=== PATIENT | male | born 1985 | race Caucasian/White ===

== ENCOUNTER 2017-05-10 10:13 | Emergency (ER) | payer MEDICARE, MEDICAID ==
[~2017-05-10] VITALS: Ht 175.3 cm; Wt 127.0 kg
[~2017-05-10 10:13] MED LIST: ALBUTEROL-200 PUFFS/ IH; AZITHROMYCIN250 M1 PO; BUPROPION HYDR150 M3 PO; CIPRO 500MG TA500 MG PO; COMPAZINE10 MG PO; DARVOCET-N 1001 EACH PO; DICLOFENAC SOD75 MG PO; FIORICET 325 MG1 TAB PO; FLEXERIL10 M1 PO; FLEXERIL10 MG PO; FLUCONAZOLE150 MG PO; IBU-8800 MG PO; IBU800 MG PO; IBUPROFEN800 MG PO; IMITREX100 MG PO; IMITREX25 MG PO; LORTAB 5/500 501 TAB PO; LORTAB 500 MG-71 TAB PO; MEDROL 4MG. DOSE4 MG PO; MOBIC7.5 MG PO; MONODOX100 MG PO; MONTELUKAST SOD10 MG PO; MOTRIN800 MG PO; NADOLOL 20 MG T20 MG PO; NADOLOL20 MG PO; NAPROSYN 375MG375 MG PO; NAPROSYN 500MG500 MG PO; NOMEDS *; NOMEDS XX; OMNICEF 300 MG300 MG PO; PEPCID40 MG PO; PHENERGAN 25MG.25 M1 PO; PREDNISONE 20MG20 MG PO; PRILOSEC20 M1 PO; PROMETH W/ DEX480 ML PO; STERAPRED DS10 MG PO; TAMIFLU 75MG CA75 MG PO; TESSALON PERLE100 M1 PO; TESSALON PERLE100 MG PO; TRAMADOL 50MG T50 MG PO; TYLENOL W/CODEI1 TA2 PO; ULTRAM 50 MG TA50 MG PO; VENTOLIN H0.09 MG/Ac IH; VIBRAMYCIN 100100 MG PO; VICODIN 5/500 T1 TAB PO; VOLTAREN75 MG PO; ZITHROMAX Z PA250 MG PO; ZYRTEC 10MG TAB10 MG PO; ZYRTEC10 M2 PO
--- NOTE | 2017-05-10 10:33 | Emergency Room Report ---
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 N Clinical Suspician of Infection? N Mental Status: 1 - Regular (Normal Baseline) Sepsis Risk:Low Sepsis Risk Have you (or family members/close friends) recently traveled outside the [place]? N If Yes, where/when: Have you had exposure to infectious disease within the past month? TB? Other? Specify: Patient reports was weed eating today when experienced acute onset of right sided pleuritic chest pain. 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 He has had one episode of vomiting, and feels short of breath. No diaphoresis or fever. He smokes two cigarettes a day, has dad with hx of [place], and denies personal hx of HTN/DM/ hyperlipidemia/CAD. No numbness or tingling. ALLERGIES Coded Allergies: Penicillins (10/07/16) Home Medications Active Scripts Prednisone (Prednisone 20MG) 20 MG PO BID #10 TAB Prov: 05/01/17 Reported Medications Ibuprofen (MOTRIN 800MG (generic) Tablet) 800 MG PO TID #90 Albuterol Sulfate (Ventolin Hfa) 0.09 MG IH PRN PRN SOB #18 History Medical History General CAD? No Angina: Yes [place]: No Hypertension? No Hyperlipidemia? No CHF? No DVT? No PE? No COPD? Yes Asthma? Yes Anemia? No GERD? No Gastric ulcers? No GI Bleed? No Hernia? No Thyroid Problems? No Hypothyroidism? No CVA? No Seizures? No Diabetes? No Insulin Dependent: No Insulin Pump: No Home FSBS? No Renal Insuffiency? No End Stage Renal Disease? No UTI? No Stones? No BPH? No GB Disease: No Nephritic Syndrome? No Asplenia? No Hepatitis? No Sickle Cell Disease? No Arthritis? No Migraines? No Cataracts? No Glaucoma? No MRSA? Yes HIV? No TB? No Anxiety? No Depression? No Cancer? No More? No Immunization Hx DT/Tetanus 1-4 YRS Flu NEVER Pneumonia NEVER Surgical Hx Previous Surgery?Y LT NECK LYMPH NODE REMOVE TONSILLECTOMY COLLAPSED LUNG X3-CHEST TUBES SURGERY TO REPR DIAPHRAGM WISDOM TEETH EXTRACTED ORAL SURGERY Family History Family Hx Diabetes Yes CAD Yes Hypertension Yes Hyperlipidemia Yes Cancer Yes TB No Social History Smoking Hx Smoker: Current Every Day Smoker Tobacco: Yes Type Cigarettes Packs/day < 1 Pack Alcohol Alcohol: No Review of Systems All Other Systems Reviewed and Negative Respiratory see HPI Physical Exam Vital Signs Vital Signs Date Time Temp Pulse Resp B/P Pulse O2 O2 Flow FiO2 Ox Delivery Rate 05/10 1059 84 18 129/80 97 05/10 1014 97.8 90 18 97 General Appearance normal appearance, WD/WN, no apparent distress, mild distress (129/87), obese Eye Exam - bilateral eye normal exam, bilateral eye PERRL, bilateral eye EOMI Neck normal inspection, non-tender, supple, full range of motion Respiratory Status Yes: trachea midline, chest symmetrical, non tender chest, pain on inspiration. No: respiratory distress, tender on palpation, use of accessory muscles, pain on expiration, productive cough, non productive cough. Lung Sounds bilateral: normal breath sounds, lungs clear (no subcutaneous air). Cardiovascular normal exam, regular rate/rhythm, no peripheral edema, no gallop, no JVD, no murmur, no rub, normal peripheral pulses Gastrointestinal normal bowel sounds, normal exam, non tender, soft, no organomegaly, no pulsatile mass, no guarding, no rebound Extremities non-tender, normal range of motion, normal inspection, normal capillary refill, no calf tenderness, no pedal edema Strength 5 Upper Ext (L), 5 Upper Ext (R), 5 Lower Ext (L), 5 Lower Ext (R) Neurologic alert, normal exam, no motor/sensory deficits, oriented x 3 Glascow Coma Scale Glascow Coma Scale Response Value EYE response: 4 Spontaneously 4 MOTOR response: 6 OBEYS 6 VERBAL response: 5 Oriented & Converses 5 Total 15 Skin intact, normal color, warm/dry Lymphatic no adenopathy Medical Decision Making LABS/Meds/Orders Pt receiving controlled substance in ED? No Results/Orders Laboratory Tests 05/10/17 1030: Sodium 142, Potassium 3.8, Chloride 108 H, Carbon Dioxide 26, BUN 18, Creatinine 1.2, Estimated Creat Clear 162, Estimated GFR (MDRD) 71, Glucose 95, Calcium 8.8, Total Bilirubin 0.2, AST 12 L, ALT 27, Alkaline Phosphatase 67, Troponin I < 0.02, Total Protein 6.8, Albumin 3.4, Globulin 3.4 H, Albumin/ Globulin Ratio 1.0 L, WBC 8.0, RBC 5.98, Hgb 16.6, Hct 50.3, MCV 84.2, RDW 14.2 , Plt Count 384, MPV 7.3 L, Gran % 68.8, Gran # 5.5, Lymphocytes % 22.4, Monocytes % 5.7, Eosinophils % 2.7, Basophils % 0.5, Lymphocytes # 1.8, Monocytes # 0.5, Eosinophils # 0.2, Basophils # 0.0, PUBS MCHC 33.4, MCH 28.1 Current Medication Orders Sig/Nadira Start time Last Medication Dose Route Stop Time Status Admin Iopamidol 60 ML ONCE ONE 05/10 1130 DC 05/10 IV 05/10 1131 1117 Sodium Chloride 10 ML PRN PRN 05/10 1130 AC 05/10 IV 05/10 1246 1117 Sodium Chloride 20 ML ONCE ONE 05/10 1130 DC 05/10 IV 05/10 1131 1117 Sodium Chloride 20 ML ONCE ONE 05/10 1130 DC 05/10 IV 05/10 1131 1117 Sodium Chloride 10 ML PRN PRN 05/10 1030 AC IV 05/11 1017 Orders Procedure Date/time Status DIET-NOTHING BY MOUTH 05/10 L Active ELECTROCARDIOGRAM REQUEST 05/10 1025 Active CHEST-PORTABLE 05/10 1025 Active IV SALINE LOCK 05/10 1025 Active TROPONIN I 05/10 1025 Complete CBC WITH AUTO DIFF 05/10 1025 Complete CHEM 12 PROFILE 05/[address] CHEST W/PE PROTOCOL REQ 05/10 1016 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 of ischemic chgs, no ectopy, normal QRS, normal MD, normal EKG (NSR 78;) XRAY/CT/US XRAY/CT/US XRAY chest XR interpretation by reviewed by me, discussed w/radiologist Xray Results normal/NAD (no PTX; chronic changes only), no infiltrates, normal heart size, normal lung inflation betsy CT chest CT interpretation by reviewed by me (report reviewed) Time results known: 1142 CT Results normal/NAD (neg PE; pos bleb, neg PTX) Pulmonary Embolism Score WELL'S CRITERIA FOR PE WELL'S CRITERIA FOR PE Response Value Clinical signs/symptoms of DVT YES 3 PE is #1 diagnosis or equally likely NO 0 Heart rate is > 100 NO 0 Immobile at least 3 days, or surgery in past 4 wks NO 0 Previously, obj. diagnosed PE or DVT NO 0 Hemoptysis NO 0 Malignancy w/Rx within 6mo, or palliative NO 0 Total 3 Patient's PE Risk 1-2pts=MOD RISK (28%) (acute onset; CT ordered) Progress ED Progress Notes Date 05/10/17 Time 1141 Comment Declines pain medication; stable, ready for DC Departure Departure Time of Disposition 1142 Disposition DC Home or Self Care(routine) Clinical Impression Primary Impression: Pleurisy Secondary Impressions: Bleb, lung Ruled Out Impressions: Pneumothorax, Pulmonary embolism Condition STABLE Referrals Jeovany Marmolejo MD (Family) Patient Instructions Pleurisy Additional Instructions Aleve as needed, see Dr. Marmolejo one to three days for follow up as well as your lung specialist, next available appointment. Discharge Counseling Counseled pt/family regarding diagnosis, test results, medications/RX, home care, follow up needs ED Critical Care Critical Care No at 1149
--- OUTSIDE RECORDS SUMMARY | 2017-05-10 10:34 | External Medical Summary Rpt ---
Author Author , Organization [employer] Address Unknown Phone Unavailable Care Team Providers Care Ict Business Development Manager Name Role Phone DELONTE MORAES JR, Unavailable Unavailable DELONTE MORAES JR BESJAMAL UMER, BESSON Unavailable Unavailable UMER BESSON UMER, BESSON Unavailable Unavailable UMER YAA, KAUSHAL A, Unavailable Unavailable BESSON KAUSHAL A BESS, BESS Unavailable Unavailable BESS ALL, BESS ALL Unavailable Unavailable BREEDING ANA, Unavailable Unavailable BREEDING ANA [facility] Unavailable Unavailable SERVICE, [facility] Unavailable Unavailable SERVICE, [facility] Erwin Tristan Unavailable Unavailable , Erwin Tristan MD [facility] ELAN ANA LAURA, Unavailable Unavailable ELAN ANA LAURA ELAN ANA LAURA, Unavailable Unavailable ELAN ANA LAURA ELAN, ROBE, Unavailable Unavailable ELAN, [facility] Unavailable [facility]available [facility] Unavailable [facility]available [facility] NISSA L.P., NISSA L.P. Unavailable Unavailable RAJ DEYVI, Unavailable Unavailable RAJ DEYVI RAJ DEYVI, Unavailable Unavailable RAJ DEYVI TERI WILLIAMSON Unavailable Unavailable TERI STEFANIA, TERI Unavailable Unavailable STEFANIA TERI STEFANIA, TERI Unavailable Unavailable STEFANIA SARAH WILLIAMSON, Unavailable Unavailable SARAH WILLIAMSON ROBERT W, Unavailable Unavailable [facility] Unavailable Unavailable INC, [facility] Unavailable Un[facility]PITAL P, [facility] CELIA WATKINS HARVEY, Unavailable Unavailable MARY SORIA Unavailable Unavailable HORMANN MAR, HORMANN Unavailable Unavailable MAR CHEW SHAYY, CHEW SHAYY Unavailable Unavailable FIDE MARTÍNEZ, FIDE Unavailable Unavailable MARTÍNEZ [facility] Un[facility] Un[facility], [facility], [facility] GABY JR DWI, GABY Unavailable Unavailable JR DWI GABY, ALEXIS E, Unavailable Unavailable GABY, ALEXIS E [facility] Un[facility] Un[facility], [facility] Unavailable Un[facility] Unavailable Unavailable [facility] Unavailable Unavailable [facility], Unavailable Unavailable [facility] Unavailable Unavailable SERVICES, [facility] PIPPA PALM, Unavailable Unavailable PIPPA PALM EMMETT P, Unavailable Unavailable JUAN A MATOS [facility], Unavailable [facility]available [facility], [facility] PUND CHR, PUND CHR Unavailable Unavailable PUND CHR, PUND CHR Unavailable Unavailable RENUSCH MARIA ALEJANDRA, RENUSCH Unavailable Unavailable MARIA ALEJANDRA SCALF ANA, SCALF ANA Unavailable Unavailable SOKAN BAB, SOKAN BAB Unavailable Unavailable JAY BENIGNO, JAY Unavailable Unavailable BENIGNO JAY BENIGNO, JAY Unavailable Unavailable BENIGNO WEHRMAN III MARVIN, Unavailable Unavailable WEHRMAN III MARVIN WEHRMAN III MARVIN, Unavailable Unavailable WEHRMAN III MARVIN GUNNER KAPLAN, GUNNER KAPLAN Unavailable Unavailable GUNNER KAPLAN, GUNNER KAPLAN Unavailable Unavailable TOD TOLEDO, Unavailable Unavailable TOD TOLEDO Purpose Continuity of Care Document - 11-12-2007 through 2016 Problems Code Diagnosis DOS Provider Status [id number] PAIN IN 03-04-2017 [facility] [id number] PAIN IN 03-04-2017 [facility] [id number] PAIN IN 03-04-2017 [facility] LEFT LOWER [facility]ICAL LEG [facility] [id number] SPRAIN 03-04-2017 [facility] UNSPECIFIED PHYSICIANS, SITE LT PLLC KNEE INITIAL ENCNTR Z720 TOBACCO USE 03-04-2017 [facility] [id number] OTHER 03-02-2017 [facility] VITREOUS OPACITIES BILATERAL H578 OTHER 03-02-2017 [facility] SPECIFIED DISORDERS OF EYE AND ADNEXA J209 ACUTE 10-07-2016 [facility] BRONCHITIS [facility] UNSPECIFIED INC J40 BRONCHITIS 10-07-2016 [facility] NOT PHYSICIANS, SPECIFIED PLLC ACUTE OR CHRONIC J440 COPD WITH 10-07-2016 [facility] ACUTE LOWER [facility] RESPIRATORY INFECTION R05 COUGH 10-07-2016 [facility] J189 PNEUMONIA 04-22-2016 [facility] UNSPECIFIED PHYSICIANS, ORGANISM PLLC J9383 OTHER 04-22-2016 [facility] PNEUMOTHORA [facility] X INC J939 PNEUMOTHORA 04-22-2016 [facility] X PHYSICIANS, UNSPECIFIED [facility] R0789 OTHER CHEST 04-22-2016 [facility] PAIN [facility] R918 OTHER 04-22-2016 [place] NONSPECIFIC MEDICAL ABNORMAL IMAGING ASS FINDING OF LUNG FIELD J430 UNILATERAL 04-21-2016 [facility] PULM [facility] EMPHYSEMA INC MACLEODS SYNDROME R079 CHEST PAIN 04-21-2016 [place] UNSPECIFIED [facility]ICAL IMAGING ASS R0989 OTH SPEC SX 04-21-2016 [place] & SIGNS MEDICAL INVLV THE IMAGING ASS CIRC & RESP SYS J069 ACUTE UPPER 01-22-2016 [facility] RESPIRATORY INTERNAL INFECTION MED UNSPECIFIED J449 CHRONIC 01-19-2016 [facility] OBSTRUCTIVE [facility] PULMONARY INC DISEASE UNS R091 PLEURISY 01-19-2016 [facility], [facility] R042 HEMOPTYSIS 01-13-2016 [facility], [facility] 462 ACUTE 07-31-2015 [place] PH[facility]NGITIS [facility] INTERNAL MEDI 4779 ALLERGIC 07-31-2015 [place] RHINITIS [place] CAUSE INTERNAL UNSPECIFIED MEDI 63180 SHORTNESS 07-31-2015 [place] OF BREATH [facility] P E8490 PLACE OF 07-31-2015 [facility] OCCURRENCE, [facility] P E9412 SYMPATHOMIM 07-31-2015 [place] ETS CAUS [facility] P EFFECT THERAPEUTIC USE V140 PERSONAL 07-31-2015 [place] HISTORY OF [facility] ALLERGY TO [facility] P PENICILLIN V8537 BODY MASS 07-31-2015 [place] INDEX VALLEY 37.0-37.9 INTERNAL ADULT MEDI 7241 PAIN IN 06-13-2015 [facility]IC [facility] SPINE [facility] 78126 GENERALIZED 05-23-2015 JAY BENIGNO ANXIETY DISORDER 33199 UNSPECIFIED 03-25-2015 [facility] CAR[facility] V154 PERS HX 11-08-2013 [facility] AL TRAUMA PRS [facility] 305.1 305.1 10-22-2013 [place] TOBACCO USE [facility] DISORDER [facility] 413.9 413.9 10-22-2013 [place] ANGINA [facility] PECTORIS [facility] NEC/NOS 493.90 493.90 10-22-2013 [place] ASTHMA, [facility] UNSPECIFIED Hospital 496 496 CHR 10-22-2013 [place] AIRWAY [facility] OBSTRUCT [facility] NEC 97348 PAIN IN 10-22-2013 ELAN JOINT, ANA LAURA FOREARM 842.00 842.00 10-22-2013 [place] SPRAIN OF [facility] 19900 SPRAIN AND 10-22-2013 PUND CHR STRAIN OF UNSPECIFIED SITE OF WRIST E8889 UNSPECIFIED 10-22-2013 ELAN FALL ANA LAURA 5283 CELLULITIS 06-02-2013 RAJ AND ABSCESS DEYVI OF ORAL SOFT TISSUES 6823 CELLULITIS 05-28-2013 [place] ROSAURA AND ABSCESS OF UPPER ARM AND FOREARM 86000 OTHER VOICE 01-12-2013 RAJ AND DEYVI RESONANCE DISORDERS 86146 POSTNASAL 01-12-2013 RAJ DRIP DEYVI 39567 OBESITY, 11-10-2012 RAJ UNSPECIFIED DEYVI 4720 CHRONIC 11-10-2012 RAJ RHINITIS DEYVI 98038 ASTHMA, 11-10-2012 RAJ UNSPECIFIED DEYVI , UNSPECIFIED STATUS 7862 COUGH 11-10-2012 RAJ DEYVI 490 BRONCHITIS 10-26-2012 RAJ NOT DEYVI SPECIFIED ACUTE OR CHRONIC 82027 UNSPECIFIED 10-26-2012 RAJ DEYVI RESPIRATORY ABNORMALITY 7906 OTHER 10-26-2012 RAJ ABNORMAL DEYVI BLOOD CHEMISTRY 8472 LUMBAR 09-11-2012 TERI STEFANIA SPRAIN AND STRAIN 23444 JAW PAIN 08-09-2012 BESSON UMER 4928 OTHER 07-12-2012 BESSON UMER EMPHYSEMA V7281 PRE-OPERATI 07-12-2012 BESSON UMER VE CARDIOVASCU LAR EXAMINATION 23905 PAIN IN 06-22-2012 [place] JOINT, MEDICAL ANKLE AND IMAGING ASS FOOT 7823 EDEMA 06-22-2012 [facility] 49430 UNSPECIFIED 06-22-2012 WEHRMAN III SITE OF MARVIN ANKLE SPRAIN AND STRAIN E8888 OTHER FALL 06-22-2012 WEHRMAN III MARVIN 16905 PAIN IN 06-14-2012 BESSON UMER JOINT, LOWER LEG 7840 HEADACHE 06-14-2012 BESSON UMER 93460 HEAD 12-30-2011 WEHRMAN III INJURY, MARVIN UNSPECIFIED 19399 SPASM OF 11-05-2011 [facility] MUSCLE [facility] 7295 PAIN IN 11-05-2011 [facility] SOFT [facility] TISSUES OF INC LIMB 25282 UNSPECIFIED 09-17-2011 [facility] RETINAL GRE DEFECT 96596 UNSPECIFIED 09-17-2011 [facility] SUBJECTIVE GRE VISUAL DISTURBANCE 45245 OTHER 09-17-2011 [facility] VISUAL GRE DISTORTIONS AND ENTOPTIC PHENOMENA 27279 OTHER 09-17-2011 [facility] VITREOUS GRE OPACITIES 0340 STREPTOCOCC 08-29-2011 [facility] AL SORE EMERGENCY THROAT SERVICES 41744 PAINFUL 08-29-2011 [facility] RESPIRATION EMERGENCY SERVICES 29957 OTHER CHEST 08-29-2011 [facility] PAIN [facility] 36615 CHEST PAIN 08-27-2011 [place] [facility] UNSPECIFIED SERV FOUNDATIO 2410 NONTOXIC 07-29-2011 [facility] UNINODULAR [facility] GOITER INC 7856 ENLARGEMENT 07-15-2011 [facility] OF LYMPH [facility] NODES INC 7842 SWELLING 07-07-2011 [facility] MASS OR EMERGENCY LUMP IN SERVICES HEAD AND NECK 93057 SPRAIN AND 03-21-2011 [facility] STRAIN OF MEM [facility]OS[facility] CHONDROSTER INC NAL 8488 OTHER 03-21-2011 [facility] SPECIFIED EMERGENCY SITES OF SERVICES SPRAINS AND STRAINS 92644 OTHER 03-21-2011 [facility] INJURY OF AMBULANCE CHEST WALL SERVICE 5282 ORAL 07-07-2010 [facility] APHTHAE EMERGENCY SERVICES 95513 CONTUSION 03-31-2010 [facility] OF BACK [facility] INC 66154 SPRAIN AND 01-09-2010 [facility] STRAIN OF EMERGENCY UNSPECIFIED SERVICES SITE OF ASSOCIATES HAND E8498 OTHER 01-09-[address] [place] [address] OF IMAGING OCCURRENCE ASSOCIATES E9179 OTHER 01-09-2010 [facility] STRIKING EMERGENCY AGAINST SERVICES W/WO ASSOCIATES SUBSEQUENT FALL 4660 ACUTE 01-03-2010 [place] BRONCHITIS [facility] PROF SERV 5110 PLEURISY 01-03-2010 [facility] MENTION HOSPITAL EFFUS/CURRE PROF SERV NT TB 5119 UNSPECIFIED 01-03-2010 [facility] PLEURAL EMERGENCY EFFUSION SERVICES ASSOCIATES 20281 MIGRAINE 09-13-2009 [facility] UNSP W/O EMERGENCY INTRACT W/O SERVICES STATUS ASSOCIATES MIGRAINOSUS 5128 OTHER 02-16-2008 [place] PNEUMOTHORA MEDICAL X AND AIR IMAGING LEAK ASSOCIATES 8600 TRAUMAT 02-16-2008 ALEISHA JR, PNEUMO W/O DELONTE F MENTION OPEN WOUND INTO THOR 9093 LATE EFFECT 02-07-2008 [facility] COMPLICATIO INC NS SURGICAL&ME DICAL CARE V5881 FITTING AND 02-05-2008 [place] ADJUSTMENT MEDICAL OF IMAGING VASCULAR ASSOCIATES CATHETER 16610 REFLUX 12-07-2007 [place] ESOPHAGITIS [facility] PROF SERV 50122 ACUTE 12-07-2007 [place] GASTRITIS [facility] MENTION OF PROF SERV HEMORRHAGE 51134 ABDOMINAL 12-07-2007 [place] PAIN, MEDICAL UNSPECIFIED IMAGING SITE ASSOCIATES 01247 PAIN IN 11-19-2007 [place] [facility] PELVIC INTERNAL REGION AND MED THIGH 3670 HYPERMETROP 11-12-2007 GAL[facility] PALM 25674 UNSPECIFIED 11-12-2007 PIPPA PALM ASTIGMATISM Allergies, Adverse Reactions, Alerts Type Drug Allergy Adverse Reaction to Substance Substance Reaction Severity Penicillin THROAT SWELLS Severe Medications Na ND Rx Da Fi Fi Am Da Di Ph RX Ph St me C No te ll ll ou ys ag ar # ys at rm s nt no ma ic us Or Da si cy ia de te s n re d LI 00 07 0 No DO 40 -2 CA 94 1- Lo IN 27 20 ng E 60 13 er HC 1 L Ac 1% ti ve AL Vital Signs 10-22-2013 22:31 Name Value Interpretat Reference Comment ion Range Body 98.2 [degF] Temperature BP 73 mm[Hg] Diastolic BP Systolic 120 mm[Hg] Heart 92 /min Rate/Pulse O2% 97 % Respiratory 16 /min Rate 10-22-2013 22:28 Name Value Interpretat Reference Comment ion Range BP 73 mm[Hg] Diastolic BP Systolic 120 mm[Hg] Heart 92 /min Rate/Pulse O2% 97 % Respiratory 16 /min Rate 05-28-2013 16:53 Name Value Interpretat Reference Comment ion Range Body 98.2 [degF] Temperature BP 76 mm[Hg] Diastolic BP Systolic 123 mm[Hg] Heart 75 /min Rate/Pulse O2% 98 % Respiratory 18 /min Rate 05-28-2013 16:52 Name Value Interpretat Reference Comment ion Range BP 76 mm[Hg] Diastolic BP Systolic 123 mm[Hg] Heart 75 /min Rate/Pulse O2% 98 % Respiratory 18 /min Rate Procedures Procedure DOS Code Location Performer Comment RADIOLOGI 44833 [place] BESS C 7 MEDICAL EXAMINATI IMAGING ON KNEE 3 ASS VIEWS RADIOLOGI 36901 [place] BESS C 7 MEDICAL EXAMINATI IMAGING ON TIBIA ASS & FIBULA 2 VIEWS RADEX 08404 [place] BESS ANKLE 7 MEDICAL COMPLETE IMAGING MINIMUM 3 ASS VIEWS RADIOLOGI 92428 [place] BESS ALL C EXAM 6 MEDICAL CHEST 2 IMAGING VIEWS ASS FRONTAL&L ATERAL RADIOLOGI 85358 [facility] JAVED C EXAM 6 [facility] CHEST 2 INC INC VIEWS FRONTAL&L ATERAL CT THORAX 34197 TELLO TELLO W/O 6 [facility] CONTRAST INC INC MATERIAL RADIOLOGI 28661 TELLO TELLO C EXAM 6 [facility] H[facility] CHEST 2 INC INC VIEWS FRONTAL&L ATERAL RADIOLOGI 22496 TELLO JAVED C EXAM 6 [facility] H[facility] CHEST 2 INC INC VIEWS FRONTAL&L ATERAL RADIOLOGI 20960 [facility] C EXAM 6 MEDICAL CHEST 2 IMAGING VIEWS ASS FRONTAL&L ATERAL ELIG CLIN G8427 [place] [facility] ATTSTS 5 VALLEY DEYVI DOC M REC INTERNAL OBTD MEDI UPD/REV PT MEDS BMI DOC G8417 [place] [facility] ABOVE 5 VALLEY DEYVI NORMAL INTERNAL JOLYNN & MEDI F/U PLAN DOCUMENTE D ECG 98873 TELLO GRIFFIN JR ROUTINE 5 [facility] W/LEAST P 12 LDS I&R ONLY INJECTION J3301 [place] RAJ 5 VALLEY DEYVI TRIAMCINO INTERNAL LONE MEDI ACETONIDE NOS 10 MG THERAPEUT 80318 [place] [facility] IC 5 VALLEY DEYVI PROPHYLAC INTERNAL TIC/DX MEDI INJECTION SUBQ/IM NORMAL G8783 [place] [facility] BLOOD 5 VALLEY DEYVI PRESS INTERNAL READING MEDI DOC F/U NOT REQUIRED PT SCRND 4004F [place] [facility] TOBACCO 5 VALLEY DEYVI USE RCVD INTERNAL TOBACCO MEDI CESSATION TALK RADEX 43015 [place] ELAN SPINE 5 MEDICAL ANA LAURA THORACIC IMAGING 3 VIEWS ASS PSYCHOTHE 08023 JAY JAY RAPY 5 BENIGNO BENIGNO W/PATIENT 45 MINUTES PSYCHOTHE 53121 JAY JAY RAPY 5 BENIGNO BENIGNO W/PATIENT 45 MINUTES PSYCHOTHE 81354 JAY JAY RAPY 5 BENIGNO BENIGNO W/PATIENT 45 MINUTES PSYCHOTHE 85379 JAY JAY RAPY 5 BENIGNO BENIGNO W/PATIENT 60 MINUTES PSYCHOTHE 33376 JAY JAY RAPY 5 BENIGNO BENIGNO W/PATIENT 45 MINUTES PSYCHOTHE 26444 JAY JAY RAPY 5 BENIGNO BENIGNO W/PATIENT 45 MINUTES PSYCHOTHE 97652 JAY JAY RAPY 5 BENIGNO BENIGNO W/PATIENT 60 MINUTES ANESTHESI 71153 COMMUNITY HORMANN A 5 ANESTH MAR INTRAORAL OF THE WITH BLUE BIOPSY NOS RADEX 30154 ELAN ELAN WRIST 3 ANA LAURA ANA LAURA COMPLETE MINIMUM 3 VIEWS PSYCHIATR 18938 JAY JAY IC 3 BENIGNO BENIGNO DIAGNOSTI C EVALUATIO N INCISION 22225 GUNNER KAPLAN & 3 DRAINAGE ABSCESS COMPLICAT ED/MULTIP LE SPMTRY 96188 RAJ RAJ W/VC 3 DEYVI DEYVI EXPIRATOR Y DARA W/WO MXML VOL VNTJ SPMTRY 30656 RAJ RAJ W/VC 2 DEYVI DEYVI EXPIRATOR Y DARA W/WO MXML VOL VNTJ ANESTHESI 48631 COUNTS INCLUDE 234 BEDS AT THE [facility] BREEDING A 2 ANESTH ANA INTRAORAL OF THE WITH BLUE BIOPSY NOS ECG 80269 YAA MON ROUTINE 2 UMER UMER ECG W/LEAST 12 LDS W/I&R RADEX 11768 [place] ELAN ANKLE 2 MEDICAL ANA LAURA COMPLETE IMAGING MINIMUM 3 ASS VIEWS GROUND A0425 [facility] AM[facility]UL[facility] PER SERVICE SERVICE STATUTE MILE AMBULANCE A0429 [facility] SERVICE 2 AMBULANCE AMBULANCE BLS [place] [address] [place] ELAN MAXILLOFA 2 MEDICAL ANA LAURA CIAL W/[place] [address] [place] ELAN HEAD/BRAI 2 MEDICAL ANA LAURA N W/O IMAGING CONTRAST ASS MATERIAL CRTCHS E0114 [facility]. NISSA L.P. UNDARM 1 OTH THAN WOOD PAIR PAD TIP&HNDGR IP IAADI 34208 TELLO JAVED INFFLUENZ 1 [facility] A A VIRUS INC INC IAADI 05144 TE[facility] JAVED INFLUENZA 1 [facility] B VIRUS INC INC RADIOLOGI 40987 [place] ELAN C EXAM 1 MEDICAL ANA LAURA CHEST 2 IMAGING VIEWS ASS FRONTAL&[place] [address] TELL[facility] JAVED STREPTOCO 1 [facility] CCUS INC INC GROUP A ECG 22370 TYLER HERNANDEZ ANANDA ROUTINE 1 MEDICAL ECG SERV W/LEAST FOUNDATIO 12 LDS I&[place] [address] TELLO JAVED THYROID 1 [facility] STIMULATI [place] [address] TLELO JAVED FREE 1 [facility] THYROXINE INC INC COLLECTIO 17104 TELLO JAVDE N VENOUS 1 [facility] BLOOD INC INC VENIPUNCT URE BLOOD 14093 TELLO JAVED COUNT 1 [facility] COMPLETE INC INC AUTO&AUTO DIFRNTL WBC CUL BACT 57365 TELLO JAVED XCPT 1 [facility] URINE INC INC BLOOD/STO OL AEROBIC ISOL COMPREHEN 80273 TELLO JAVED SIVE 1 [facility] METABOLIC INC INC PANEL COLLECTIO 67330 TLELO MEDINAON N VENOUS 1 [facility] BLOOD INC INC VENIPUNCT URE CT SOFT 47552 TELLO JAVED TISSUE 1 [facility] NECK INC INC W/CONTRAS T MATERIAL 3D 27252 TELLOYORDY JAVED RENDERING 1 [facility] INC INC W/INTERP& POSTPROC DIFF WORK STATION RADEX 02109 TELLO JAVED RIBS UNI 1 [facility] W/POSTERO INC INC ANT CH MINIMUM 3 VIEWS AMB A0427 [facility] SERVICE 1 AMBULANCE AMBULANCE ALS SERVICE SERVICE EMERGENCY TRANSPORT LEVEL 1 GROUND A0425 [facility] AM[place]UL[facility] [place] [address] KIERA ANSARI HEAD/BRAI 0 MEDICAL ANA LAURA N W/O IMAGING CONTRAST ASS MATERIAL RADIOLOGI 74418 [facility] [place] SCALF ANA C EXAM 0 RADIOLOGY CHEST 2 VIEWS FRONTAL&L ATERAL URNLS DIP 32217 TELLOYORDY JAVED 0 [facility] STICK/TAB INC INC LET REAGENT AUTO MICROSCOP Y RADEX 45031 TELLO JAVED FOREARM 2 0 [facility] VIEWS INC INC RADEX 44352 KIERA MEANSCHER, HAND 0 MEDICAL ROBE MINIMUM 3 IMAGING VIEWS ASSOCIATE S PRESSURIZ 45343 TE[facility] JAVED ED/NONPRE 0 [facility] SSURIZED INC INC INHALATIO N TREATMENT RADIOLOGI 15286 TELLO JAVED C EXAM 0 [facility] CHEST 2 INC INC VIEWS FRONTAL&L ATERAL ECG 30140 TE[facility] JAVED ROUTINE 0 [facility] ECG INC INC W/LEAST 12 LDS TRCG ONLY W/O I&R ECG 75645 NÉSTOR KENNEDYEY, ROUTINE 0 EMERGENCY SARAH S ECG SERVICES W/LEAST 12 LDS ASSOCIATE I&R ONLY S RADEX 39572 TELLO JAVED FOREARM 2 9 [facility] VIEWS INC INC RADEX 72568 TELLO JAVED WRIST 9 [facility] COMPLETE INC INC MINIMUM 3 VIEWS THERAPEUT 11595 [facility] JAVED IC 9 [facility] PROPHYLAC INC INC TIC/DX INJECTION SUBQ/IM RADIOLOGI 20843 Russ ABREU EXAM 8 MEDICAL JUAN A P CHEST 2 IMAGING VIEWS ASSOCIATE FRONTAL&L S ATERAL RADIOLOGI 41839 TELLO JAVED C EXAM 8 [facility] CHEST 2 INC INC VIEWS FRONTAL&L ATERAL GROUND A0425 [facility] 8 AMBULANCE AMBULANCE PER SERVICE SERVICE STATUTE MILE AMBULANCE A0429 [facility] SERVICE 8 AMBULANCE AMBULANCE BLS SERVICE SERVICE EMERGENCY TRANSPORT RADIOLOGI 19598 Russ ABREU EXAM 8 MEDICAL JUAN A P CHEST 2 IMAGING VIEWS ASSOCIATE FRONTAL&L S ATERAL RADIOLOGI 37801 Russ ABREU 8 MEDICAL JUAN A P EXAMINATI IMAGING ON CHEST ASSOCIATE SINGLE S VIEW FRONTAL SBSQ 28876 [facility] 8 JR SAMEER, CARE/DAY DELONTE Blackman 25 MINUTES RADIOLOGI 39996 Russ ABREU 8 MEDICAL JUAN A P EXAMINATI IMAGING ON CHEST ASSOCIATE SINGLE S VIEW FRONTAL SBSQ 87951 [facility] 8 JR SAMEER, CARE/DAY DELONTE Blackman 25 MINUTES OTHER 3409 TELL[facility] JAVED INCISION 8 [facility] OF [place] INC INC TUBE 46039 [facility]AC[facility] 8 , , AVELINO DELONTE Blackman INCLUDES WATER SEAL RADIOLOGI 05356 [place] Russ MATOS 8 MEDICAL JUAN A P EXAMINATI IMAGING ON CHEST ASSOCIATE SINGLE S VIEW FRONTAL RADIOLOGI 19837 [place] Russ ANSARI EXAM 8 MEDICAL ROBE CHEST 2 IMAGING VIEWS ASSOCIATE FRONTAL&L S ATERAL INITIAL 98546 [facility] INPATIENT 8 JR, JR, CONSULT DELONTE Blackman NEW/ESTAB PT 80 MIN THER 28930 TELLO JAVED PROPH/DX 8 [facility] NJX EA INC INC SEQL IV PUSH SBST/DRUG CREATINE 75688 TELLO JAVED KINASE MB 8 [facility] FRACTION INC INC ONLY COLLECTIO 76177 TELLO JAVED N VENOUS 8 [facility] BLOOD INC INC VENIPUNCT URE THER 96601 TELLO JAVED PROPH/DX 8 [facility] NJX IV INC INC PUSH 1ST SBST/DRUG CREATINE 62347 TELLO JAVED KINASE 8 [facility] [place] [address] TELLO JAVED AMYLASE 8 [facility] INC INC HEPATIC 83552 TELLO JAVED FUNCTION 8 [facility] PANEL INC INC ECG 89126 TELLO WATKINS, ROUTINE 8 [facility] W/LEAST PROF SERV 12 LDS I&R ONLY BLOOD 80168 TELLO JAVED COUNT 8 [facility] COMPLETE INC INC AUTO&[place] [address] TELLO JAVED TROPONIN 8 [facility] QUANTITAT INC INC JUAN BASIC 69722 TELLO JAVED METABOLIC 8 [facility] PANEL INC INC CALCIUM TOTAL ECG 39235 TELLO JAVED ROUTINE 8 [facility] ECG INC INC W/LEAST 12 LDS TRCG ONLY W/O I&[place] [address] TELLO JAVED LIPASE 8 [facility] INC INC RADEX ABD 86065 [facility] COMPL 8 MEDICAL MEDICAL AQT ABD IMAGING IMAGING W/S/E/D ASSOCIATE ASSOCIATE VIEWS 1 S S VIEW CH RADIOLOGI 89772 [facility] C 8 MEDICAL MEDICAL EXAMINATI IMAGING IMAGING ON CHEST ASSOCIATE ASSOCIATE SINGLE S S VIEW FRONTAL OPHTH 90957 NÉSTOR PALM MEDICAL 8 PIPPA PIPPA XM&EVAL W W COMPRE NEW PT 1/> VST DETERMINA 55427 NÉSTOR PALM TION 8 PIPPA DAS REFRACTIV W [facility] Encounters Encounter Start End Date Code Location Performer Type Date HOSPITAL TELLO Savage 7 7 [facility] OUTPATIEN INC T EMERGENCY 88876 TELLO 7 7 [facility] DEPARTMEN INC T VISIT LOW/MODER SEVERITY EMERGENCY 81200 MONY WILLIAMSON 7 7 [facility]YSICIAN DEPARTMEN [facility], [facility] T VISIT HIGH/URGE NT SEVERITY OFFICE 82093 NÉSTOR DAVIS 7 7 T VISIT 25 MINUTES HOSPITAL TELLO - 6 6 [facility] OUTPATIEN INC T EMERGENCY 55470 TELLO 6 6 [facility] DEPART[facility] T VISIT LIMITED/M INOR PROB EMERGENCY 98408 MONY LUCAS 6 6 [facility]ICIAN [facility] T VISIT MODERATE SEVERITY EMERGENCY 80742 TELLO 6 6 [facility] DEPARTMEN INC T VISIT LIMITED/M INOR PROB EMERGENCY 33745 MONY NINA 6 6 PHYSICIAN MARIA ALEJANDRA [facility] T VISIT MODERATE SEVERITY HOSPITAL TELLO - 6 6 [facility] OUT[facility] T EMERGENCY 89390 TELL[facility] 6 6 [facility] DEPART[facility] T VISIT LOW/MODER SEVERITY EMERGENCY 53337 MONY NINA 6 6 PHYSICIAN MARIA ALEJANDRA [facility] T VISIT HIGH/URGE NT SEVERITY HOSPITAL TELLO - 6 6 [facility] T OFFICE 26192 [facility] OUT[facility] 6 6 [facility] T VISIT INTERNAL 15 MED MINUTES EMERGENCY 97554 TELLO 6 6 [facility] DEPART[facility] T VISIT LOW/MODER SEVERITY EMERGENCY 77482 MONY TERI 6 6 PHYSICIAN STFEANIA DEPARTMEN [facility] PLL[facility] T VISIT MODERATE SEVERITY HOSPITAL TELLO - 6 6 [facility] T EMERGENCY 92827 MONY TERI 6 6 [facility] DEPART[facility] T VISIT MODERATE SEVERITY HOSPITAL TELLO - 6 6 [facility] OUT[facility] INC T EMERGENCY 96761 TELLO 6 6 [facility] DEPARTMEN INC T VISIT LOW/MODER SEVERITY OFFICE 59792 [place] RAJ OUTPATIEN 5 5 [facility] DEYVI T VISIT INTERNAL 15 MEDI MINUTES Emergency MELITON Tristan MD (ER) 3 21:53 3 22:32 [facility] er R. EMERGENCY 51460 RIP TRISTAN CHR 3 3 DEPARTMEN T VISIT MODERATE SEVERITY OFFICE 82093 RAJ RAJ OUTPATIEN 3 3 DEYVI DEYVI T VISIT 10 MINUTES Emergency MELITON Durham MD (ER) 3 16:24 3 16:59 [facility] EMERGENCY 77415 GUNNER KAPLAN 3 3 DEPARTMEN T VISIT HIGH/URGE NT SEVERITY OFFICE 79487 RAJ RAJ OUTPATIEN 3 3 DEYVI DEYVI T VISIT 15 MINUTES OFFICE 33333 RAJ RAJ OUTPATIEN 3 3 DEYVI DEYVI T VISIT 15 MINUTES OFFICE 37463 RAJ RAJ OUTPATIEN 2 2 DEYVI DEYVI T VISIT 15 MINUTES EMERGENCY 05588 TERI WILLIAMSON 2 2 STEFANIA STEFANIA DEPARTMEN T VISIT HIGH/URGE NT SEVERITY OFFICE 63395 BESSON BESSON OUTPATIEN 2 2 UMER UMER T VISIT 15 MINUTES OFFICE [id number] [facility] BESSON OUTPATIEN 2 2 UMER UMER T VISIT 25 MINUTES EMERGENCY 17553 TELLO 2 2 [facility] DEPARTMEN INC T VISIT HIGH/URGE NT SEVERITY HOSPITAL TELLO - 2 2 [facility] INC T EMERGENCY 82787 MARIZOL FONTANA 2 2 III MARVIN III [facility] DEPARTMEN T VISIT MODERATE SEVERITY OFFICE 69702 BESSON BESSON OUTPATIEN 2 2 UMER UMER T VISIT 25 MINUTES EMERGENCY 85891 MARIZOL FONTANA DEPT 2 2 III MARVIN III [facility] VISIT HIGH SEVERITY& THREAT [facility] TELLO - 1 1 [facility] OUT[facility] INC T EMERGENCY 70344 TELLO 1 1 [facility] DEPARTMEN INC T VISIT LOW/MODER SEVERITY EMERGENCY 17041 TELLO 1 1 [facility]PART[facility] INC T VISIT LOW/MODER SEVERITY HOSPITAL TELLO - 1 1 [facility] OUTPATI[facility] INC T EMERGENCY 03687 NÉSTOR FONTANA 1 1 EMERGENCY III [facility] SERVICES T VISIT HIGH/URGE NT SEVERITY HOSPITAL TELLO - 1 1 [facility] INC T HOSPITAL TELLO - 1 1 [facility] INC T EMERGENCY 30257 TELLO 1 1 [facility] DEPARTMEN INC T VISIT MODERATE SEVERITY HOSPITAL TELLO - 1 1 [facility] OUT[facility] INC T EMERGENCY 76849 NÉSTOR DOUGLASS DEPT 1 1 EMERGENCY VISIT SERVICES HIGH SEVERITY& [facility]O - 1 1 [facility] OUT[facility] INC T EMERGENCY 03743 NÉSTOR WILLIAMSON 1 1 EMERGENCY [facility] DEPARTMEN SERVICES T VISIT HIGH/URGE NT SEVERITY EMERGENCY 01270 TELLO 1 1 [facility] DEPARTMEN INC T VISIT LOW/MODER SEVERITY EMERGENCY 30046 NÉSTOR ELIZALDE DEPT 0 0 EMERGENCY [facility] VISIT SERVICES HIGH SEVERITY& THREAT [facility] EMERGENCY 80868 TELLO 0 0 [facility] DEPARTMEN INC T VISIT LOW/MODER SEVERITY HOSPITAL TELLO - 0 0 [facility] OUTPATIEN INC T EMERGENCY 39923 NÉSTOR WILLIAMSON 0 0 [facility] HIGH/URGE NT SEVERITY EMERGENCY 10734 NÉSTOR WILLIAMSON, 0 0 EMERGENCY [facility] SERVICES T VISIT HIGH/URGE ASSOCIATE NT S SEVERITY HOSPITAL TELLO - 0 0 [facility] OUTPATIEN INC T EMERGENCY 50129 TELLO 0 0 [facility] DEPARTMEN INC T VISIT LOW/MODER SEVERITY EMERGENCY 06217 NÉSTOR WILLIAMSON, 0 0 EMERGENCY [facility] SERVICES T VISIT MODERATE ASSOCIATE SEVERITY S HOSPITAL TELLO - 0 0 [facility] OUTPATIEN [facility] T HOSPITAL TELLO - 0 0 [facility] OUTPATIEN [facility] T EMERGENCY 84038 NÉSTOR WILLIAMSON, 0 0 EMERGENCY [facility] T VISIT HIGH/URGE ASSOCIATE NT S SEVERITY EMERGENCY 55294 TELLO 0 0 [facility] DEPARTMEN INC T VISIT LOW/MODER SEVERITY HOSPITAL TELLO - 9 9 [facility] OUTPATIEN INC T EMERGENCY 42206 TELLO 9 9 [facility] DEPARTMEN INC T VISIT MODERATE SEVERITY EMERGENCY 09305 NÉSTOR WILLIAMSON, 9 9 EMERGENCY [facility] T VISIT HIGH/URGE ASSOCIATE NT S SEVERITY EMERGENCY 92511 TELLO 9 9 [facility] T VISIT LIMITED/M INOR PROB HOSPITAL TELLO - 9 9 [facility] OUTPATIEN [facility] T HOSPITAL TELLO - 8 8 [facility] OUTPATIEN [facility] T OFFICE 10566 ALEISHA MORAES [facility] 8 8 JR SAMEER, T VISIT DELONTE Blackman 15 MINUTES EMERGENCY 08154 TELLO 8 8 [facility] T VISIT LOW/MODER SEVERITY HOSPITAL TELLO - 8 8 [facility] 34067 TELLO FRANCIS, 8 8 [facility] T VISIT PROF SERV HIGH/URGE NT SEVERITY HOSPITAL TELLO - 8 8 [facility] INPATIENT [facility] EMERGENCY 77445 TELLO 8 8 [facility] T VISIT HIGH/URGE NT SEVERITY HOSPITAL TELLO [facility] 8 8 [facility] 65249 TELLO [place], 8 8 [facility] T VISIT PROF SERV MODERATE SEVERITY OFFICE 40607 DESIREE KIM 8 8 PRINCESS Maurice T VISIT INTERNAL 15 MED MINUTES
--- OUTSIDE RECORDS SUMMARY | 2017-05-10 10:34 | External Medical Summary Rpt ---
Author Author , Organization [employer] Address Unknown Phone Unavailable Care Team Providers Care Combination Saw Operator Name Role Phone DELONTE MORAES JR, Unavailable Unavailable DELONTE MORAES JR BESJAMAL UMER, BESSON Unavailable Unavailable UMER BESSON UMER, BESSON Unavailable Unavailable UMER YAA, KAUSHAL A, Unavailable Unavailable BESSON KAUSHAL A BESS, BESS Unavailable Unavailable BESS ALL, BESS ALL Unavailable Unavailable BREEDING ANA, Unavailable Unavailable BREEDING NAA [facility] Unavailable Unavailable SERVICE, [facility] Unavailable Unavailable SERVICE, [facility] Erwin Tristan Unavailable Unavailable , Erwin Tristan MD [facility] Unavailable Unavailable [facility], [facility] ELAN ANA LAURA, Unavailable [...] TERI STEFANIA, TERI Unavailable Unavailable STEFANIA SARAH WILLIASMON, Unavailable Unavailable SARAH WILLIAMSON ROBERT W, Unavailable Unavailable TREVOR FRANCIS [facility] Unavailable Unavailable INC, [facility] Un[facility] Un[facility] P, [facility] CELIA WATKINS HARVEY, Unavailable Unavailable MARY SORIA Unavailable Unavailable HORMANN MAR, HORMANN Unavailable Unavailable MAR CHEW SHAYY, CHEW SHAYY Unavailable Unavailable FIDE MARTÍNEZ, FIDE Unavailable Unavailable MARTÍNEZ [facility] Unavailable Unavailable [facility], [facility] Unavailable Un[facility], [facility] Unavailable [...] 2016 Problems Code Diagnosis DOS Provider Status [id number] PAIN IN 03-04-2017 [facility] [place] LEFT KNEE [facility] S60632 PAIN IN 03-04-2017 [place] [facility] ANKLE [facility] K47130 PAIN IN 03-04-2017 [place] LEFT LOWER MEDICAL LEG [facility] ASS K4978CU SPRAIN 03-04-2017 [facility] UNSPECIFIED PHYSICIANS, SITE LT PLLC KNEE INITIAL ENCNTR Z720 TOBACCO USE 03-04-2017 [facility] [id number] OTHER 03-02-2017 [facility] VITREOUS OPACITIES BILATERAL H578 OTHER 03-02-2017 [facility] SPECIFIED DISORDERS OF EYE AND ADNEXA J209 ACUTE 10-07-2016 [facility] BRONCHITIS [facility] UNSPECIFIED INC J40 BRONCHITIS 10-07-2016 [facility] NOT PHYSICIANS, SPECIFIED PLLC ACUTE OR CHRONIC J440 COPD WITH 10-07-2016 [facility] ACUTE LOWER [facility] RESPIRATORY INFECTION R05 COUGH 10-07-2016 [facility] J189 PNEUMONIA 04-22-2016 [facility] UNSPECIFIED PHYSICIANS, ORGANISM PLLC J9383 OTHER 04-22-2016 [facility] PNEUMOTHORA [facility] X INC J939 PNEUMOTHORA 04-22-2016 [facility] X PHYSICIANS, UNSPECIFIED [facility] R0789 OTHER CHEST 04-22-2016 [place] PAIN [facility]ICAL [facility] R918 OTHER 04-22-2016 [place] NONSPECIFIC MEDICAL ABNORMAL IMAGING ASS FINDING OF LUNG FIELD J430 UNILATERAL 04-21-2016 [facility] PULM [facility] EMPHYSEMA INC MACLEODS SYNDROME R079 CHEST PAIN 04-21-2016 [place] UNSPECIFIED [facility]ICAL IMAGING ASS R0989 OTH SPEC SX 04-21-2016 [place] & SIGNS MEDICAL INVLV THE IMAGING ASS CIRC & RESP SYS J069 ACUTE UPPER 01-22-2016 [facility] RESPIRATORY INTERNAL INFECTION MED UNSPECIFIED J449 CHRONIC 01-19-2016 [facility] OBSTRUCTIVE [facility] PULMONARY INC DISEASE UNS R091 PLEURISY 01-19-[address] [facility] [address], [facility] R042 HEMOPTYSIS 01-13-2016 [facility] [address], [facility] 462 ACUTE 07-31-2015 [facility] PHARYNGITIS [facility] INTERNAL MEDI 4779 ALLERGIC 07-31-2015 [place] RHINITIS ELVERTA CAUSE INTERNAL UNSPECIFIED MEDI 83143 SHORTNESS 07-31-2015 [facility] OF BREATH [facility] P E8490 PLACE OF 07-31-2015 [facility] OCCURRENCE, [facility] P E9412 SYMPATHOMIM 07-31-2015 [facility] ETS CAUS [facility] P EFFECT THERAPEUTIC USE V140 PERSONAL 07-31-2015 [facility] HISTORY OF [facility] ALLERGY TO [facility] P PENICILLIN V8537 BODY MASS 07-31-2015 [facility] INDEX VALLEY 37.0-37.9 INTERNAL ADULT MEDI 7241 PAIN IN 06-13-2015 [facility] [place] 26385 GENERALIZED 05-23-2015 JAY BENIGNO ANXIETY DISORDER 71549 UNSPECIFIED 03-25-2015 [facility] DENTAL ANESTH OF CARIES [facility] V154 PERS HX 11-08-2013 [facility]PT FOR PSYCHOLOGIC [facility] AL TRAUMA PRS [facility] 305.1 305.1 10-22-2013 [place] TOBACCO USE [facility] DISORDER [facility] 413.9 413.9 10-22-2013 [place] ANGINA [facility] PECTORIS [facility] NEC/NOS 493.90 493.90 10-22-2013 [place] ASTHMA, [facility] UNSPECIFIED Hospital 496 496 CHR 10-22-2013 [place] AIRWAY [facility] OBSTRUCT [facility] NEC 59004 PAIN IN 10-22-2013 ELAN JOINT, ANA LAURA FOREARM 842.00 842.00 10-22-2013 [place] SPRAIN OF [facility] 26348 SPRAIN AND 10-22-2013 PUND CHR STRAIN OF UNSPECIFIED SITE OF WRIST E8889 UNSPECIFIED 10-22-2013 ELAN FALL ANA LAURA 5283 CELLULITIS 06-02-2013 RAJ AND ABSCESS DEYVI OF ORAL SOFT TISSUES 6823 CELLULITIS 05-28-2013 WELLS ROSAURA AND ABSCESS OF UPPER ARM AND FOREARM 06433 OTHER VOICE 01-12-2013 RA[facility] AND DEYVI RESONANCE DISORDERS 66254 POSTNASAL 01-12-2013 [facility] DRIP DEYVI 32073 OBESITY, 11-10-2012 [facility] UNSPECIFIED DEYVI 4720 CHRONIC 11-10-2012 [facility] RHINITIS DEYVI 80124 ASTHMA, 11-10-2012 [facility] UNSPECIFIED DEYVI , UNSPECIFIED STATUS 7862 COUGH 11-10-2012 RAJ DEYVI 490 BRONCHITIS 10-26-2012 RA[facility] NOT DEYVI SPECIFIED ACUTE OR CHRONIC 38315 UNSPECIFIED 10-26-2012 ARJ DEYVI RESPIRATORY ABNORMALITY 7906 OTHER 10-26-2012 RAJ ABNORMAL DEYVI BLOOD CHEMISTRY 8472 LUMBAR 09-11-2012 TERI STEFANIA SPRAIN AND STRAIN 76978 JAW PAIN 08-09-2012 BESSON UMER 4928 OTHER 07-12-2012 BESSON UMER EMPHYSEMA V7281 PRE-OPERATI 07-12-2012 BESSON UMER VE CARDIOVASCU LAR EXAMINATION 11830 PAIN IN 06-22-2012 [place] JOINT, MEDICAL ANKLE AND IMAGING ASS FOOT 7823 EDEMA 06-22-2012 [facility] 22143 UNSPECIFIED 06-22-2012 WEHRMAN III SITE OF MARVIN ANKLE SPRAIN AND STRAIN E8888 OTHER FALL 06-22-2012 WEHRMAN III MARVIN 59225 PAIN IN 06-14-2012 BESSON UMER JOINT, LOWER LEG 7840 HEADACHE 06-14-2012 BESSON UMER 86390 HEAD 12-30-2011 WEHRMAN III INJURY, MARVIN UNSPECIFIED 05639 SPASM OF 11-05-2011 [facility] MUSCLE [facility] 7295 PAIN IN 11-05-2011 [facility] SOFT [facility] TISSUES OF INC LIMB 07439 UNSPECIFIED 09-17-2011 [facility] RETINAL GRE DEFECT 13785 UNSPECIFIED 09-17-2011 [facility] SUBJECTIVE GRE VISUAL DISTURBANCE 99666 OTHER 09-17-2011 [facility] VISUAL GRE DISTORTIONS AND ENTOPTIC PHENOMENA 53528 OTHER 09-17-2011 [facility] VITREOUS GRE OPACITIES 0340 STREPTOCOCC 08-29-2011 [facility] AL SORE EMERGENCY THROAT SERVICES 60523 PAINFUL 08-29-2011 [facility] RESPIRATION EMERGENCY SERVICES 98874 OTHER CHEST 08-29-2011 [facility] PAIN [facility] INC 48067 CHEST PAIN 08-27-2011 [place] [facility] UNSPECIFIED SERV FOUNDATIO 2410 NONTOXIC 07-29-2011 [facility] UNINODULAR [facility] GOITER INC 7856 ENLARGEMENT 07-15-2011 [facility] OF LYMPH [facility] NODES INC 7842 SWELLING 07-07-2011 [facility] MASS OR EMERGENCY LUMP IN SERVICES HEAD AND NECK 88610 SPRAIN AND 03-21-2011 [facility] STRAIN OF MEM [facility]OS[facility] CHONDROSTER INC NAL 8488 OTHER 03-21-2011 [facility] SPECIFIED EMERGENCY SITES OF SERVICES SPRAINS AND STRAINS 22419 OTHER 03-21-2011 [facility] INJURY OF AMBULANCE CHEST WALL SERVICE 5282 ORAL 07-07-2010 [facility] APHTHAE EMERGENCY SERVICES 68696 CONTUSION 03-31-2010 [facility] OF BACK [facility] INC 38266 SPRAIN AND 01-09-2010 [facility] STRAIN OF EMERGENCY UNSPECIFIED SERVICES SITE OF ASSOCIATES HAND E8498 OTHER 01-09-2010 [place] SPECIFIED [facility] OF IMAGING OCCURRENCE ASSOCIATES E9179 OTHER 01-09-2010 [facility] STRIKING EMERGENCY AGAINST SERVICES W/WO ASSOCIATES SUBSEQUENT FALL 4660 ACUTE 01-03-2010 [facility] BRONCHITIS [facility] PROF SERV 5110 PLEURISY 01-03-2010 [facility] MENTION HOSPITAL EFFUS/CURRE PROF SERV NT TB 5119 UNSPECIFIED 01-03-2010 [facility] PLEURAL EMERGENCY EFFUSION SERVICES ASSOCIATES 34082 MIGRAINE 09-13-2009 [facility] UNSP W/O EMERGENCY INTRACT W/O SERVICES STATUS ASSOCIATES MIGRAINOSUS 5128 OTHER 02-16-2008 [place] PNEUMOTHORA MEDICAL X AND AIR IMAGING LEAK ASSOCIATES 8600 TRAUMAT 02-16-2008 ALEISHA JR, PNEUMO W/O DELONTE F MENTION OPEN WOUND INTO THOR 9093 LATE EFFECT 02-07-2008 [facility] COMPLICATIO INC NS SURGICAL&ME DICAL CARE V5881 FITTING AND 02-05-2008 [place] ADJUSTMENT MEDICAL OF IMAGING VASCULAR ASSOCIATES CATHETER 71448 REFLUX 12-07-2007 [facility] ESOPHAGITIS [facility] PROF SERV 84195 ACUTE 12-07-2007 [facility] GASTRITIS [facility] MENTION OF PROF SERV HEMORRHAGE 26686 ABDOMINAL 12-07-2007 [place] PAIN, MEDICAL UNSPECIFIED IMAGING SITE ASSOCIATES 63156 PAIN IN 11-19-2007 [place] [facility] PELVIC INTERNAL REGION AND MED THIGH 3670 HYPERMETROP 11-12-2007 GALILEO PALM 63299 UNSPECIFIED 11-12-2007 PIPPA PALM ASTIGMATISM Allergies, Adverse [...] Procedure DOS Code Location Performer Comment RADIOLOGI 38784 [place] BESS C 7 MEDICAL EXAMINATI IMAGING ON KNEE 3 ASS VIEWS RADIOLOGI 02749 [place] [facility] 7 MEDICAL EXAMINATI IMAGING ON TIBIA ASS & FIBULA 2 VIEWS RADEX 06897 [place] BESS ANKLE 7 MEDICAL COMPLETE IMAGING MINIMUM 3 ASS VIEWS RADIOLOGI 99304 [place] BESS ALL C EXAM 6 MEDICAL CHEST 2 IMAGING VIEWS ASS FRONTAL&L ATERAL RADIOLOGI 81005 [facility] JAVED C EXAM 6 [facility] CHEST 2 INC INC VIEWS FRONTAL&L ATERAL CT THORAX 70210 [facility] TELLO W/O 6 [facility] CONTRAST INC INC MATERIAL RADIOLOGI 75963 TELL[facility] TELLO C EXAM 6 MEM HOSP [facility] CHEST 2 INC INC VIEWS FRONTAL&L ATERAL RADIOLOGI 64788 TELL[facility] JAVED C EXAM 6 [facility] H[facility] CHEST 2 INC INC VIEWS FRONTAL&L ATERAL RADIOLOGI 17426 [facility] C EXAM 6 MEDICAL CHEST 2 IMAGING VIEWS ASS FRONTAL&L ATERAL ELIG CLIN G8427 [facility] ATTSTS 5 VALLEY DEYVI DOC M REC INTERNAL OBTD MEDI UPD/REV PT MEDS BMI DOC G8417 [facility] ABOVE 5 VALLEY DEYVI NORMAL INTERNAL JOLYNN & MEDI F/U PLAN DOCUMENTE D ECG 58821 TELL[facility] GRIFFIN JR ROUTINE 5 [facility] W/LEAST P 12 LDS I&R ONLY INJECTION J3301 [place] RAJ 5 VALLEY DEYVI TRIAMCINO INTERNAL LONE MEDI ACETONIDE NOS 10 MG THERAPEUT 64252 [facility] IC 5 [facility]LEY DEYVI PROPHYLAC INTERNAL TIC/DX MEDI INJECTION SUBQ/IM NORMAL G8783 [facility] BLOOD 5 [facility] DEYVI PRESS INTERNAL READING MEDI DOC F/U NOT REQUIRED PT SCRND 4004F [place] TOBACCO 5 VALLEY DEYVI USE RCVD INTERNAL TOBACCO MEDI CESSATION TALK RADEX 23436 [place] ELAN SPINE 5 MEDICAL ANA LAURA THORACIC IMAGING 3 VIEWS ASS PSYCHOTHE 42359 JAY JAY RAPY 5 BENIGNO BENIGNO W/PATIENT 45 MINUTES PSYCHOTHE 13086 JAY JAY RAPY 5 BENIGNO BENIGNO W/PATIENT 45 MINUTES PSYCHOTHE 02561 JAY JAY RAPY 5 BENIGNO BENIGNO W/PATIENT 45 MINUTES PSYCHOTHE 26861 JAY JAY RAPY 5 BENIGNO BENIGNO W/PATIENT 60 MINUTES PSYCHOTHE 58285 JAY JAY RAPY 5 BENIGNO BENIGNO W/PATIENT 45 MINUTES PSYCHOTHE 89449 JAY JAY RAPY 5 BENIGNO BENIGNO W/PATIENT 45 MINUTES PSYCHOTHE 89739 JAY JAY RAPY 5 BENIGNO BENIGNO W/PATIENT 60 MINUTES ANESTHESI 45921 COMMUNITY HORMANN A 5 ANESTH MAR INTRAORAL OF THE WITH BLUE BIOPSY NOS RADEX 37649 ELAN ELAN WRIST 3 ANA LAURA ANA LAURA COMPLETE MINIMUM 3 VIEWS PSYCHIATR 87194 JAY JAY IC 3 BENIGNO BENIGNO DIAGNOSTI C EVALUATIO N INCISION 24281 GUNNER KAPLAN & 3 DRAINAGE ABSCESS COMPLICAT ED/MULTIP LE SPMTRY 89398 RAJ RAJ W/VC 3 DEYVI DEYVI EXPIRATOR Y DARA W/WO MXML VOL VNTJ SPMTRY 44142 RAJ RAJ W/VC 2 DEYVI DEYVI EXPIRATOR Y DARA W/WO MXML VOL VNTJ ANESTHESI 20566 [facility] BREEDING A 2 ANESTH ANA INTRAORAL OF THE WITH BLUE BIOPSY NOS ECG 16136 YAA MON ROUTINE 2 UMER UMER ECG W/LEAST 12 LDS W/I&R RADEX 49043 [place] ELAN ANKLE 2 MEDICAL ANA LAURA COMPLETE IMAGING MINIMUM 3 ASS VIEWS GROUND [facility]0425 [facility] PER SERVICE SERVICE STATUTE MILE AMBULANCE A0429 [facility] SERVICE 2 AMBULANCE AMBULANCE BLS [place] [address] [place] ELAN MAXILLOFA 2 MEDICAL ANA LAURA CIAL W/[place] [address] [place] ELAN HEAD/BRAI 2 MEDICAL ANA LAURA N W/O IMAGING CONTRAST ASS MATERIAL CRTCHS E0114 [facility] UNDARM 1 OTH THAN WOOD PAIR PAD TIP&HNDGR IP IAADI 49643 [facility] JAVED INFFLUENZ 1 [facility] A A VIRUS INC INC IAADI 19331 [facility] JAVED INFLUENZA 1 [facility] B VIRUS INC INC RADIOLOGI 67626 [place] ELAN C EXAM 1 MEDICAL ANA LAURA CHEST 2 IMAGING VIEWS ASS FRONTAL&[place] [address] TE[facility] JAVED STREPTOCO 1 [facility] CCUS INC INC GROUP A ECG 41630 TYLER HERNANDEZ ANANDA ROUTINE 1 MEDICAL ECG SERV W/LEAST FOUNDATIO 12 LDS I&[place] [address] TE[facility] JAVED THYROID 1 [facility] STIMULATI [place] [address] TELLO JAVED FREE 1 [facility] THYROXINE INC INC COLLECTIO 29623 [facility] JAVED N VENOUS 1 [facility] BLOOD INC INC VENIPUNCT URE BLOOD 02720 [facility] JAVED COUNT 1 [facility] COMPLETE INC INC AUTO&AUTO DIFRNTL WBC CUL BACT 41531 TLELO JAVED XCPT 1 [facility] URINE INC INC BLOOD/STO OL AEROBIC ISOL COMPREHEN 12528 TE[facility] JAVED SIVE 1 [facility] METABOLIC INC INC PANEL COLLECTIO 52080 TE[facility] MEDINAON N VENOUS 1 [facility] BLOOD INC INC VENIPUNCT URE CT SOFT 32351 TE[facility] JAVED TISSUE 1 [facility] NECK INC INC W/CONTRAS T MATERIAL 3D 63963 TELLOYORDY JAVED RENDERING 1 [facility] INC INC W/INTERP& POSTPROC DIFF WORK STATION RADEX 60366 [facility] JAVED RIBS UNI 1 [facility] W/POSTERO INC INC ANT CH MINIMUM 3 VIEWS AMB A0427 [facility] SERVICE 1 AMBULANCE AMBULANCE ALS SERVICE SERVICE EMERGENCY TRANSPORT LEVEL 1 GROUND A0425 [facility] [place] [address] KIERA ANSARI HEAD/BRAI 0 MEDICAL ANA LAURA N W/O IMAGING CONTRAST ASS MATERIAL RADIOLOGI 71358 [facility] [place] SCALF ANA C EXAM 0 RADIOLOGY CHEST 2 VIEWS FRONTAL&L ATERAL URNLS DIP 44840 TELLOYORDY JAVED 0 [facility] STICK/TAB INC INC LET REAGENT AUTO MICROSCOP Y RADEX 30801 [facility] JAVED FOREARM 2 0 [facility] VIEWS INC INC RADEX 54485 KIERA MEANSCHER, HAND 0 MEDICAL ROBE MINIMUM 3 IMAGING VIEWS ASSOCIATE S PRESSURIZ 30783 [facility] JAVED ED/NONPRE 0 [facility] SSURIZED INC INC INHALATIO N TREATMENT RADIOLOGI 10068 [facility] JAVED C EXAM 0 [facility] CHEST 2 INC INC VIEWS FRONTAL&L ATERAL ECG 43306 [facility] JAVED ROUTINE 0 [facility] ECG INC INC W/LEAST 12 LDS TRCG ONLY W/O I&R ECG 84385 NÉSTOR KENNEDYEY, ROUTINE 0 EMERGENCY SARAH S ECG SERVICES W/LEAST 12 LDS ASSOCIATE I&R ONLY S RADEX 06998 [facility] J[facility]ED FOREARM 2 9 [facility] VIEWS INC INC RADEX 32889 [facility] J[facility]ED WRIST 9 [facility] COMPLETE INC INC MINIMUM 3 VIEWS THERAPEUT 81949 [facility]ED IC 9 [facility] PROPHYLAC INC INC TIC/DX INJECTION SUBQ/IM RADIOLOGI 95146 Russ ABREU EXAM 8 MEDICAL JUAN A P CHEST 2 IMAGING VIEWS ASSOCIATE FRONTAL&L S ATERAL RADIOLOGI 43219 [facility] JAVED C EXAM 8 [facility] CHEST 2 INC INC VIEWS FRONTAL&L ATERAL GROUND A0425 [facility] 8 AMBULANCE AMBULANCE PER SERVICE SERVICE STATUTE MILE AMBULANCE A0429 [facility] SERVICE 8 AMBULANCE AMBULANCE BLS SERVICE SERVICE EMERGENCY TRANSPORT RADIOLOGI 87739 Russ ABREU EXAM 8 MEDICAL JUAN A P CHEST 2 IMAGING VIEWS ASSOCIATE FRONTAL&L S ATERAL RADIOLOGI 76309 Russ ABREU 8 MEDICAL JUAN A P EXAMINATI IMAGING ON CHEST ASSOCIATE SINGLE S VIEW FRONTAL SBSQ 13183 [place] 8 JR SAMEER, CARE/DAY DELONTE Blackman 25 MINUTES RADIOLOGI 25519 Russ ABREU 8 MEDICAL JUAN A P EXAMINATI IMAGING ON CHEST ASSOCIATE SINGLE S VIEW FRONTAL SBSQ 12472 [place] 8 JR SAMEER, CARE/DAY DELONTE Blackman 25 MINUTES OTHER 3409 [facility] JAVED INCISION 8 [facility] [place] INC INC TUBE 22272 ALLRAN ALLRAN THORACOST 8 , , AVELINO DELONTE Blackman INCLUDES WATER SEAL RADIOLOGI 34440 [place] Russ MATOS 8 MEDICAL JUAN A P EXAMINATI IMAGING ON CHEST ASSOCIATE SINGLE S VIEW FRONTAL RADIOLOGI 61052 [place] Russ ANSARI EXAM 8 MEDICAL ROBE CHEST 2 IMAGING VIEWS ASSOCIATE FRONTAL&L S ATERAL INITIAL 99793 ALLRAN ALLRAN INPATIENT 8 JR, JR, CONSULT DELONTE Blakcman NEW/ESTAB PT 80 MIN THER 96082 [facility] JAVED PROPH/DX 8 [facility] NJX EA INC INC SEQL IV PUSH SBST/DRUG CREATINE 28006 [facility] JAVED KINASE MB 8 [facility] FRACTION INC INC ONLY COLLECTIO 54325 TELLO JAVED N VENOUS 8 [facility] BLOOD INC INC VENIPUNCT URE THER 73461 TE[facility] JAVED PROPH/DX 8 [facility] NJX IV INC INC PUSH 1ST SBST/DRUG CREATINE 24889 [facility] JAVED KINASE 8 [facility] [place] [address] TELLO JAVED AMYLASE 8 [facility] INC INC HEPATIC 13869 TELLO JAVED FUNCTION 8 [facility] PANEL INC INC ECG 10432 TELLO WATKINS, ROUTINE 8 [facility] W/LEAST PROF SERV 12 LDS I&R ONLY BLOOD 15446 TELLO JAVED COUNT 8 [facility] COMPLETE INC INC AUTO&[place] [address] TELLO JAVED TROPONIN 8 [facility] QUANTITAT INC INC JUAN BASIC 94138 TELLO JAVED METABOLIC 8 [facility] PANEL INC INC CALCIUM TOTAL ECG 86205 TELLO JAVED ROUTINE 8 [facility] ECG INC INC W/LEAST 12 LDS TRCG ONLY W/O I&[place] [address] TELLO JAVED LIPASE 8 [facility] INC INC RADEX ABD 94909 [facility] COMPL 8 MEDICAL MEDICAL AQT ABD IMAGING IMAGING W/S/E/D ASSOCIATE ASSOCIATE VIEWS 1 S S VIEW CH RADIOLOGI 34180 [facility] C 8 MEDICAL MEDICAL EXAMINATI IMAGING IMAGING ON CHEST ASSOCIATE ASSOCIATE SINGLE S S VIEW FRONTAL OPHTH 16128 NÉSTOR PALM MEDICAL 8 PIPPA PIPPA XM&EVAL W W COMPRE NEW PT 1/> VST DETERMINA 25745 NÉSTOR PALM TION 8 PIPPA [facility]AS [facility] Encounters Encounter Start End Date Code Location Performer Type Date HOSPITAL TELLO Savage 7 7 [facility] OUTPATIEN INC T EMERGENCY 52725 TELLO 7 7 [facility] DEPARTMEN INC T VISIT LOW/MODER SEVERITY EMERGENCY 26244 MON[facility] WILLIAMSON 7 7 PHYSICIAN DEPARTMEN S, [facility] VISIT HIGH/URGE NT SEVERITY OFFICE 86495 NÉSTOR DAVIS 7 7 T VISIT 25 MINUTES HOSPITAL TELLO - 6 6 [facility] OUTPATIEN INC T EMERGENCY 50701 TELLO 6 6 [facility] DEPARTMEN INC T VISIT LIMITED/M INOR PROB EMERGENCY 33669 MONY LUCAS 6 6 PHYSICIAN AUGUSTMEN S, PLLC T VISIT MODERATE SEVERITY EMERGENCY 71912 TELLO 6 6 [facility] DEPARTMEN INC T VISIT LIMITED/M INOR PROB EMERGENCY 35842 MONY NINA 6 6 PHYSICIAN MARIA ALEJANDRA AUGUSTMEN S, PLLC T VISIT MODERATE SEVERITY HOSPITAL TELLO - 6 6 [facility] OUTPATIEN INC T EMERGENCY 13404 TELLO 6 6 [facility] DEPARTMEN INC T VISIT LOW/MODER SEVERITY EMERGENCY 47612 MONY NINA 6 6 PHYSICIAN MARIA ALEJANDRA DEPARTMEN S, PLLC T VISIT HIGH/URGE NT SEVERITY HOSPITAL TELLO - 6 6 [facility] OUTPATIEN INC T OFFICE 49868 [facility] B[facility]ON OUTPATIEN 6 6 [facility] UMER T VISIT INTERNAL 15 MED MINUTES EMERGENCY 47134 TELLO 6 6 [facility] DEPARTMEN INC T VISIT LOW/MODER SEVERITY EMERGENCY 95697 MONY TERI 6 6 PHYSICIAN STEFANIA DEPARTMEN S, PLLC T VISIT MODERATE SEVERITY HOSPITAL TELLO - 6 6 [facility] OUTPATIEN INC T EMERGENCY 29928 MONY TERI 6 6 PHYSICIAN [facility] DEPARTMEN S, PLLC T VISIT MODERATE SEVERITY HOSPITAL TELLO - 6 6 [facility] OUTPATIEN INC T EMERGENCY 64387 TELLO 6 6 [facility] DEPARTMEN INC T VISIT LOW/MODER SEVERITY OFFICE 78565 [facility] OUTPATIEN 5 5 VALLEY DEYVI T VISIT INTERNAL 15 MEDI MINUTES Emergency MELITON Tristan MD (ER) 3 21:53 3 22:32 [facility] er R. EMERGENCY 47422 RIP TRISTAN CHR 3 3 DEPARTMEN T VISIT MODERATE SEVERITY OFFICE 15490 [facility] RAJ OUTPATIEN 3 3 DEYVI DEYVI T VISIT 10 MINUTES Emergency MELITON Durham MD (ER) 3 16:24 3 16:59 [facility] EMERGENCY 73698 GUNNER KAPLAN 3 3 DEPARTMEN T VISIT HIGH/URGE NT SEVERITY OFFICE 68892 RAJ RAJ OUTPATIEN 3 3 DEYVI DEYVI T VISIT 15 MINUTES OFFICE 64852 RAJ RAJ OUTPATIEN 3 3 DEYVI DEYVI T VISIT 15 MINUTES OFFICE 01822 RAJ RAJ OUTPATIEN 2 2 DEYVI DEYVI T VISIT 15 MINUTES EMERGENCY 64006 TERI WILLIAMSON 2 2 STEFANIA STEFANIA DEPARTMEN T VISIT HIGH/URGE NT SEVERITY OFFICE 46941 BESSON BESSON OUTPATIEN 2 2 UMER UMER T VISIT 15 MINUTES OFFICE 71225 BESSON BESSON OUTPATIEN 2 2 UMER UMER T VISIT 25 MINUTES EMERGENCY 13374 TELLO 2 2 MEM [facility] DEPARTMEN INC T VISIT HIGH/URGE NT SEVERITY HOSPITAL TELLO - 2 2 [facility] OUTPATIEN INC T EMERGENCY 49496 MARIZOL FONTANA 2 2 III MARVIN III MARVIN DEPARTMEN T VISIT MODERATE SEVERITY OFFICE 08612 BESSON BESSON OUTPATIEN 2 2 UMER UMER T VISIT 25 MINUTES EMERGENCY 59424 MARIZOL FONTANA DEPT 2 2 III MARVIN III [facility] VISIT HIGH SEVERITY& THREAT [facility] TELLO - 1 1 [facility] OUTPATIEN INC T EMERGENCY 36093 TELLO 1 1 [facility] DEPARTMEN INC T VISIT LOW/MODER SEVERITY EMERGENCY 25938 TELLO 1 1 [facility] DEPARTMEN INC T VISIT LOW/MODER SEVERITY HOSPITAL TELLO - 1 1 [facility] OUTPATIEN INC T EMERGENCY 67848 NÉSTOR FONTANA 1 1 EMERGENCY III [facility] SERVICES T VISIT HIGH/URGE NT SEVERITY HOSPITAL TELLO - 1 1 [facility] OUTPATIEN INC T HOSPITAL TELLO - 1 1 [facility] OUTPATIEN INC T EMERGENCY 16501 TELLO 1 1 [facility] DEPARTMEN INC T VISIT MODERATE SEVERITY HOSPITAL TELLO - 1 1 [facility] OUTPATIEN INC T EMERGENCY 34827 NÉSTOR DOUGLASS DEPT 1 1 EMERGENCY VISIT SERVICES HIGH SEVERITY& [facility] TELLO - 1 1 [facility] OUTPATIEN INC T EMERGENCY 05747 NÉSTOR WILLIAMSON 1 1 EMERGENCY [facility] DEPARTMEN SERVICES T VISIT HIGH/URGE NT SEVERITY EMERGENCY 69128 TELLO 1 1 [facility] DEPARTMEN INC T VISIT LOW/MODER SEVERITY EMERGENCY 49853 NÉSTOR ELIZALDE DEPT 0 0 EMERGENCY [facility] VISIT SERVICES HIGH SEVERITY& THREAT [facility] EMERGENCY 59532 TELLO 0 0 [facility] DEPARTMEN INC T VISIT LOW/MODER SEVERITY HOSPITAL TELLO - 0 0 [facility] OUTPATIEN INC T EMERGENCY 51652 NÉSTOR WILLIAMSON 0 0 [facility] HIGH/URGE NT SEVERITY EMERGENCY 17934 NÉSTOR WILLIAMSON, 0 0 EMERGENCY [facility] SERVICES T VISIT HIGH/URGE ASSOCIATE NT S SEVERITY HOSPITAL TLELO - 0 0 [facility] OUTPATIEN INC T EMERGENCY 91973 TELLO 0 0 [facility] DEPARTMEN INC T VISIT LOW/MODER SEVERITY EMERGENCY 75972 NÉSTOR WILLIAMSON, 0 0 EMERGENCY [facility] SERVICES T VISIT MODERATE ASSOCIATE SEVERITY S HOSPITAL TELLO - 0 0 [facility] OUTPATIEN [facility] T HOSPITAL TELLO - 0 0 [facility] OUTPATIEN [facility] T EMERGENCY 54214 NÉSTOR WILLIAMSON, 0 0 EMERGENCY [facility] SERVICES T VISIT HIGH/URGE ASSOCIATE NT S SEVERITY EMERGENCY 18305 TELLO 0 0 [facility] DEPARTMEN INC T VISIT LOW/MODER SEVERITY HOSPITAL TELLO - 9 9 [facility] OUTPATIEN INC T EMERGENCY 41392 TELLO 9 9 [facility] DEPARTMEN INC T VISIT MODERATE SEVERITY EMERGENCY 92272 NÉSTOR WILLIAMSON, 9 9 EMERGENCY [facility] SERVICES T VISIT HIGH/URGE ASSOCIATE NT S SEVERITY EMERGENCY 12387 TELLO 9 9 [facility] T VISIT LIMITED/M INOR PROB HOSPITAL TELLO - 9 9 [facility] OUTPATIEN [facility] T HOSPITAL TELLO - 8 8 [facility] OUTPATIEN [facility] T OFFICE [id number] ALEISHA MORAES [facility] 8 8 JR SAMEER, T VISIT DELONTE Blackman 15 MINUTES EMERGENCY [id number] TELLO 8 8 [facility] T VISIT LOW/MODER SEVERITY HOSPITAL TELLO - 8 8 [facility] EMERG[facility] [id number] TELLO FRANCIS, 8 8 [facility] T VISIT PROF SERV HIGH/URGE NT SEVERITY HOSPITAL TELLO - 8 8 [facility] INPATIENT [facility] EMERGENCY [id number] TELLO 8 8 [facility] T VISIT HIGH/URGE NT SEVERITY HOSPITAL TELLO - 8 8 [facility] 19752 TELLO [place], [address] [facility] T VISIT PROF SERV MODERATE SEVERITY OFFICE 16323 DESIREE KIM 8 8 PRINCESS Maurice T VISIT INTERNAL 15 MED MINUTES
--- OUTSIDE RECORDS SUMMARY | 2017-05-10 10:36 | External Medical Summary Rpt ---
Author Author , Organization [employer] Address Unknown Phone Unavailable Care Team Providers [facility] Nurse Name Role Phone DELONTE MORAES JR, Unavailable Unavailable GARRETTWILLIAN ESTRELLADELONTEJAMAL UMER, BESSON Unavailable Unavailable UMER MICHAELSON UMER, BESSON Unavailable Unavailable UMER KAUSHAL MON A, Unavailable Unavailable BESSON, KAUSHAL A BREEDING ANA, Unavailable Unavailable BREEDING ANA [facility] Unavailable Unavailable SERVICE, [facility] Unavailable Unavailable SERVICE, [facility] Unavailable Unavailable [facility], [facility] ELAN ANA LAURA, [...] DEYVI RAJ DEYVI, Unavailable Unavailable RAJ DEYVI TERI, TERI Unavailable Unavailable TERI STEFANIA, TERI Unavailable Unavailable STEFANIA TERI STEFANIA, TERI Unavailable Unavailable STEFANIA SARAH WILLIAMSON, Unavailable Unavailable SARAH WILLIAMSON ROBERT W, Unavailable Unavailable TREVOR FRANCIS [facility] Unavailable Unavailable INC, [facility] Unavailable Unavailable [facility] P, [facility] CELIA WATKINS HARVEY, Unavailable Unavailable MARY SORIA Unavailable Unavailable HORMANN MAR, HORMANN Unavailable Unavailable MAR CHEW SHAYY, CHEW SHAYY Unavailable Unavailable FIDE MARTÍNEZ, FIDE Unavailable Unavailable MARTÍNEZ [facility], [facility] Un[facility] Un[facility], [facility] GABY ESTRELLA DWI, GABY Unavailable Unavailable JR DWI GABY, [...] EMMETT P, Unavailable Unavailable [facility]UAN [facility], Unavailable Unavailable PLLC, [facility] [...] GUNNER KAPLAN, GUNNER KAPLAN Unavailable Unavailable GUNNER KAPALN, GUNNER KAPLAN Unavailable Unavailable TOD TOLEDO, Unavailable Unavailable TOD TOLEDO Continuity of Care Document - 11-12-2007 through 2016 Problems Code Diagnosis DOS Provider Status [id number] PAIN IN 03-04-2017 [facility] [id number] PAIN IN 03-04-2017 [facility] [id number] PAIN IN 03-04-2017 [facility] LOWER [facility]ICAL [facility]G [facility] [id number] SPRAIN 03-04-2017 [facility] UNSPECIFIED PHYSICIANS, SITE [facility] KNEE INITIAL ENCNTR Z720 TOBACCO USE 03-04-2017 [facility] [id number] OTHER 03-02-2017 [facility] VITREOUS OPACITIES BILATERAL H578 OTHER 03-02-2017 [facility] SPECIFIED DISORDERS OF EYE AND ADNEXA J209 ACUTE 10-07-2016 [facility] BRONCHITIS [facility] UNSPECIFIED INC J40 BRONCHITIS 10-07-2016 [facility] NOT PHYSICIANS, SPECIFIED PLLC ACUTE OR CHRONIC J440 COPD WITH 10-07-2016 [facility] ACUTE LOWER [facility] INC RESPIRATORY INFECTION R05 COUGH 10-07-2016 [facility] J189 PNEUMONIA 04-22-2016 [facility] UNSPECIFIED PHYSICIANS, ORGANISM PLLC J9383 OTHER 04-22-2016 [facility] PNEUMOTHORA [facility] X INC J939 PNEUMOTHORA 04-22-2016 [facility] X PHYSICIANS, UNSPECIFIED PLLC R0789 OTHER CHEST 04-22-2016 [place] PAIN [facility] R918 OTHER 04-22-2016 [facility] NONSPECIFIC MEDICAL ABNORMAL IMAGING ASS FINDING OF LUNG FIELD J430 UNILATERAL 04-21-2016 [facility] PULM [facility] EMPHYSEMA INC MACLEODS SYNDROME R079 CHEST PAIN 04-21-2016 [facility] UNSPECIFIED [facility]ICAL IM[facility]ING ASS R0989 OTH SPEC SX 04-21-2016 [facility] & SIGNS MEDICAL INVLV THE IMAGING ASS CIRC & RESP SYS J069 ACUTE UPPER 01-22-2016 [facility] RESPIRATORY INTERNAL INFECTION MED UNSPECIFIED J449 CHRONIC 01-19-2016 [facility] OBSTRUCTIVE [facility] PULMONARY INC DISEASE UNS R091 PLEURISY 01-19-[address] [facility] [address], [facility] R042 HEMOPTYSIS 01-13-[address] [facility] [address], [facility] 462 ACUTE 07-31-2015 [facility] PHARYNGITIS [facility] INTERNAL MEDI 4779 ALLERGIC 07-31-2015 [facility] RHINITIS [facility] CAUSE INTERNAL UNSPECIFIED MEDI 27962 SHORTNESS 07-31-2015 [facility] OF BREATH [facility] P E8490 PLACE OF 07-31-2015 [facility] OCCURRENCE, [facility] P E9412 SYMPATHOMIM 07-31-2015 [facility] ETS CAUS [facility] P EFFECT THERAPEUTIC USE V140 PERSONAL 07-31-2015 [facility] HISTORY OF [facility] ALLERGY TO [facility] P PENICILLIN V8537 BODY MASS 07-31-2015 [facility] INDEX VALLEY 37.0-37.9 INTERNAL ADULT MEDI 7241 PAIN IN 06-13-2015 [facility] 86150 GENERALIZED 05-23-2015 JAY BENIGNO ANXIETY DISORDER 34911 UNSPECIFIED 03-25-2015 [facility] DENTAL ANESTH OF CARIES THE BLUE V154 PERS HX 11-08-2013 DEPT FOR PSYCHOLOGIC PUBLIC HLTH AL TRAUMA PRS [facility] 05794 PAIN IN 10-22-2013 ELAN JOINT, ANA LAURA FOREARM 81132 SPRAIN AND 10-22-2013 PUND CHR STRAIN OF UNSPECIFIED SITE OF WRIST E8889 UNSPECIFIED 10-22-2013 ELAN FALL ANA LAURA 5283 CELLULITIS 06-02-2013 RAJ AND ABSCESS DEYVI OF ORAL SOFT TISSUES 6823 CELLULITIS 05-28-2013 WELLS ROSAURA AND ABSCESS OF UPPER ARM AND FOREARM 65308 OTHER VOICE 01-12-2013 RAJ AND DEYVI RESONANCE DISORDERS 20040 POSTNASAL 01-12-2013 RAJ DRIP DEYVI 19551 OBESITY, 11-10-2012 RAJ UNSPECIFIED DEYIV 4720 CHRONIC 11-10-2012 RAJ RHINITIS DEYVI 00743 ASTHMA, 11-10-2012 RAJ UNSPECIFIED DEYVI , UNSPECIFIED STATUS 7862 COUGH 11-10-2012 RAJ DEYVI 490 BRONCHITIS 10-26-2012 RAJ NOT DEYVI SPECIFIED ACUTE OR CHRONIC 28883 UNSPECIFIED 10-26-2012 RAJ DEYVI RESPIRATORY ABNORMALITY 7906 OTHER 10-26-2012 RAJ ABNORMAL DEYVI BLOOD CHEMISTRY 8472 LUMBAR 09-11-2012 TERI STEFANIA SPRAIN AND STRAIN 45365 JAW PAIN 08-09-2012 BESSON UMER 4928 OTHER 07-12-2012 BESSON UMER EMPHYSEMA V7281 PRE-OPERATI 07-12-2012 BESSON UMER VE CARDIOVASCU LAR EXAMINATION 19573 PAIN IN 06-22-2012 [place] JOINT, MEDICAL ANKLE AND IMAGING ASS FOOT 7823 EDEMA 06-22-2012 [facility] 15706 UNSPECIFIED 06-22-2012 WEHRMAN III SITE OF MARVIN ANKLE SPRAIN AND STRAIN E8888 OTHER FALL 06-22-2012 WEHRMAN III MARVIN 01104 PAIN IN 06-14-2012 MICHALESON UMER JOINT, LOWER LEG 7840 HEADACHE 06-14-2012 BESSON UMER 52050 HEAD 12-30-2011 WEHRMAN III INJURY, MARVIN UNSPECIFIED 15444 SPASM OF 11-05-2011 [facility] MUSCLE [facility] INC 7295 PAIN IN 11-05-2011 [facility] SOFT [facility] TISSUES OF INC LIMB 44935 UNSPECIFIED 09-17-2011 [facility] RETINAL GRE DEFECT 66616 UNSPECIFIED 09-17-2011 [facility] SUBJECTIVE GRE VISUAL DISTURBANCE 83957 OTHER 09-17-2011 [facility] VISUAL GRE DISTORTIONS AND ENTOPTIC PHENOMENA 66304 OTHER 09-17-2011 [facility] VITREOUS GRE OPACITIES 0340 STREPTOCOCC 08-29-2011 [facility] AL SORE EMERGENCY THROAT SERVICES 68977 PAINFUL 08-29-2011 [facility] RESPIRATION EMERGENCY SERVICES 22076 OTHER CHEST 08-29-2011 [facility] PAIN [facility] INC 72745 CHEST PAIN 08-27-2011 [place] [facility] UNSPECIFIED SERV [facility] 2410 NONTOXIC 07-29-2011 [facility] UNINODULAR [facility] GOITER INC 7856 ENLARGEMENT 07-15-2011 [facility] OF LYMPH [facility] NODES INC 7842 SWELLING 07-07-2011 [facility] MASS OR EMERGENCY LUMP IN SERVICES HEAD AND NECK 01049 SPRAIN AND 03-21-2011 [facility] STRAIN OF [facility] CHONDROSTER INC NAL 8488 OTHER 03-21-2011 [facility] SPECIFIED EMERGENCY SITES OF SERVICES SPRAINS AND STRAINS 10785 OTHER 03-21-2011 [facility] INJURY OF AMBULANCE CHEST WALL SERVICE 5282 ORAL 07-07-2010 [facility] APHTHAE EMERGENCY SERVICES 11077 CONTUSION 03-31-2010 [place] OF BACK [facility] INC 87971 SPRAIN AND 01-09-2010 [facility] STRAIN OF EMERGENCY UNSPECIFIED SERVICES SITE OF ASSOCIATES HAND E8498 OTHER 01-09-[address] OF IMAGING OCCURRENCE ASSOCIATES E9179 OTHER 01-09-2010 [facility] STRIKING EMERGENCY AGAINST SERVICES W/WO ASSOCIATES SUBSEQUENT FALL 4660 ACUTE 01-03-2010 [facility] BRONCHITIS [facility] PROF SERV 5110 PLEURISY 01-03-2010 [place] [address] [facility] HOSPITAL EFFUS/CURRE PROF SERV NT TB 5119 UNSPECIFIED 01-03-2010 [facility] PLEURAL EMERGENCY EFFUSION SERVICES ASSOCIATES 96464 MIGRAINE 09-13-2009 [facility] UNSP W/O EMERGENCY INTRACT W/O SERVICES STATUS ASSOCIATES MIGRAINOSUS 5128 OTHER 02-16-2008 [place] PNEUMOTHORA MEDICAL X AND AIR IMAGING LEAK ASSOCIATES 8600 TRAUMAT 02-16-2008 ALEISHA ESTRELLA PNEUMO W/O DELONTE F MENTION OPEN WOUND INTO THOR 9093 LATE EFFECT 02-07-2008 [facility] COMPLICATIO INC NS SURGICAL&ME DICAL CARE V5881 FITTING AND 02-05-2008 [place] ADJUSTMENT MEDICAL OF IMAGING VASCULAR ASSOCIATES CATHETER 34893 REFLUX 12-07-2007 [place] ESOPHAGITIS [facility] PROF SERV 20146 ACUTE 12-07-2007 [place] GASTRITIS [facility] MENTION OF PROF SERV HEMORRHAGE 43933 ABDOMINAL 12-07-2007 [place] PAIN, MEDICAL UNSPECIFIED IMAGING SITE ASSOCIATES 03642 PAIN IN 11-19-2007 [facility] PELVIC INTERNAL REGION AND MED THIGH 3670 HYPERMETROP 11-12-2007 GALILEO PALM 02686 UNSPECIFIED 11-12-2007 [facility] PALM ASTIGMATISM Procedures Procedure DOS Code Location Performer Comment RADEX 83692 [facility] JAVED ANKLE 7 [facility] COMPLETE INC INC MINIMUM 3 VIEWS RADIOLOGI 68059 [facility] JAVED C 7 [facility] EXAMINATI INC INC ON TIBIA & FIBULA 2 VIEWS RADIOLOGI 79855 TE[facility]O JAVED C 7 MEM [facility] EXAMINATI INC INC ON KNEE 3 VIEWS RADIOLOGI 18913 TELLO JAVED C EXAM 6 MEM [facility] CHEST 2 INC INC VIEWS FRONTAL&L ATERAL RADIOLOGI 76786 KIERA ANSARI C EXAM 6 MEDICAL ANA LAURA CHEST 2 IMAGING VIEWS ASS FRONTAL&L ATERAL CT THORAX 98761 KIERA ANSARI W/O 6 MEDICAL ANA LAURA CONTRAST IMAGING MATERIAL ASS RADIOLOGI 10172 KIERA ANSARI C EXAM 6 MEDICAL ANA LAURA CHEST 2 IMAGING VIEWS ASS FRONTAL&L ATERAL RADIOLOGI 34040 TELLO JAVED C EXAM 6 [facility] CHEST 2 INC INC VIEWS FRONTAL&L ATERAL RADIOLOGI 56332 TELLO JAVED C EXAM 6 [facility] CHEST 2 INC INC VIEWS FRONTAL&L ATERAL THERAPEUT 59777 [facility] IC 5 VALLEY DEYVI PROPHYLAC INTERNAL TIC/DX MEDI INJECTION SUBQ/IM INJECTION J3301 [facility] RAJ 5 VALLEY DEYVI TRIAMCINO INTERNAL LONE MEDI ACETONIDE NOS 10 MG ECG 08878 TELLO GRIFFIN JR ROUTINE 5 [facility] W/LEAST P 12 LDS I&R ONLY BMI DOC G8417 [facility] ABOVE 5 VALLEY DEYVI NORMAL INTERNAL JOLYNN & MEDI F/U PLAN DOCUMENTE D ELIG CLIN G8427 [facility] ATTSTS 5 VALLEY DEYVI DOC M REC INTERNAL OBTD MEDI UPD/REV PT MEDS PT SCRND 4004F [facility] TOBACCO 5 VALLEY DEYVI USE RCVD INTERNAL TOBACCO MEDI CESSATION TALK NORMAL G8783 [facility] BLOOD 5 VALLEY DEYVI PRESS INTERNAL READING MEDI DOC F/U NOT REQUIRED RADEX 28482 KIERA ANSARI SPINE 5 MEDICAL ANA LAURA THORACIC IMAGING 3 VIEWS ASS PSYCHOTHE 68329 JAY JAY RAPY 5 BENIGNO BENIGNO W/PATIENT 45 MINUTES PSYCHOTHE 21351 JAY JAY RAPY 5 BENIGNO BENIGNO W/PATIENT 45 MINUTES PSYCHOTHE 16726 JAY JAY RAPY 5 BENIGNO BENIGNO W/PATIENT 45 MINUTES PSYCHOTHE 61400 JAY JAY RAPY 5 BENIGNO BENIGNO W/PATIENT 60 MINUTES PSYCHOTHE 92611 JAY JAY RAPY 5 BENIGNO BENIGNO W/PATIENT 45 MINUTES PSYCHOTHE 16014 JAY JAY RAPY 5 BENIGNO BENIGNO W/PATIENT 45 MINUTES PSYCHOTHE 71940 JAY JAY RAPY 5 BENIGNO BENIGNO W/PATIENT 60 MINUTES ANESTHESI 85608 COMMUNITY HORMANN A 5 ANESTH MAR INTRAORAL OF THE WITH BLUE BIOPSY NOS RADEX 59770 ELAN ELAN WRIST 3 ANA LAURA ANA LAURA COMPLETE MINIMUM 3 VIEWS PSYCHIATR 56645 JAY JAY IC 3 BENIGNO BENIGNO DIAGNOSTI C EVALUATIO N INCISION 55244 GUNNER KAPLAN & 3 DRAINAGE ABSCESS COMPLICAT ED/MULTIP LE SPMTRY 44084 RAJ RAJ W/VC 3 DEYVI DEYVI EXPIRATOR Y DARA W/WO MXML VOL VNTJ SPMTRY 55533 RAJ RAJ W/VC 2 DEYVI DEYVI EXPIRATOR Y DARA W/WO MXML VOL VNTJ ANESTHESI 40637 COMMUNITY BREEDING A 2 ANESTH ANA INTRAORAL OF THE WITH BLUE BIOPSY NOS ECG 94624 BESSON BESJAMAL ROUTINE 2 UMER UMER ECG W/LEAST 12 LDS W/I&R RADEX 99974 [facility] JAVED ANKLE 2 [facility] COMPLETE INC INC MINIMUM 3 VIEWS AMBULANCE A0429 [facility] SERVICE 2 AMBULANCE AMBULANCE BLS SERVICE SERVICE EMERGENCY TRANSPORT GROUND A0425 [facility] MILEAGE 2 AMBULANCE AM[place]UL[place] [address] [place] ELAN MAXILLOFA 2 MEDICAL ANA LAURA CIAL W/[place] [address] [place] ELAN HEAD/BRAI 2 MEDICAL ANA LAURA N W/O IMAGING CONTRAST ASS MATERIAL CRTCHS E0114 [facility] UNDARM 1 OTH THAN WOOD PAIR PAD TIP&HNDGR IP RADIOLOGI 64870 [place] ELAN C EXAM 1 MEDICAL ANA LAURA CHEST 2 IMAGING VIEWS ASS FRONTAL&[place] [address] TELLO JAVED STREPTOCO 1 [facility] CCUS INC INC GROUP A IAADI 02770 TELLO JAVED INFLUENZA 1 [facility] B VIRUS INC INC IAADI 47485 TELLO JAVED INFFLUENZ 1 [facility] A A VIRUS INC INC ECG 43980 TYLER NOLANDO ROUTINE 1 MEDICAL ECG SERV W/LEAST FOUNDATIO 12 LDS I&R ONLY COLLECTIO 71539 TELLO JAVED N VENOUS 1 [facility] [place] [address] TELLO JAVED FREE 1 [facility] [place] [address] TELLO JAVED THYROID 1 MEM [facility] STIMULATI INC INC NG HORMONE TSH BLOOD 13081 TELL[facility] JAVED COUNT 1 [facility]OS[facility] COMPLETE INC INC AUTO&AUTO DIFRNTL WBC COLLECTIO 28898 TE[facility] JAVED N VENOUS 1 [facility] BLOOD INC INC VENIPUNCT URE COMPREHEN 58030 [facility] JAVED SIVE 1 [facility] METABOLIC INC INC PANEL CUL BACT 51570 [facility] JAVED XCPT 1 [facility] URINE INC INC BLOOD/STO OL AEROBIC ISOL 3D 35390 [facility] RENDERING 1 MEDICAL ANA LAURA IMAGING W/INTERP& ASS POSTPROC DIFF WORK STATION CT SOFT 76623 [facility] [place] TISSUE 1 MEDICAL ANA LAURA NECK IMAGING W/CONTRAS ASS T MATERIAL GROUND A0425 [facility] PER SERVICE SERVICE STATUTE MILE AMB A0427 [facility] SERVICE 1 AMBULANCE AMBULANCE ALS SERVICE SERVICE EMERGENCY TRANSPORT LEVEL 1 RADEX 92532 [facility] RIBS UNI 1 MEDICAL ANA LAURA W/POSTERO IMAGING ANT CH ASS [place] [address] [place] [address] [facility] [place] HEAD/BRAI 0 MEDICAL ANA LAURA N W/O IMAGING CONTRAST ASS MATERIAL RADIOLOGI 41921 [facility] [place] SCALF ANA C EXAM 0 RADIOLOGY CHEST 2 VIEWS FRONTAL&L ATERAL URNLS DIP 65031 [facility] JAVED 0 [facility] STICK/TAB INC INC LET REAGENT AUTO MICROSCOP Y RADEX 60316 [facility] ELAN, HAND 0 MEDICAL ROBE MINIMUM 3 IMAGING VIEWS ASSOCIATE S RADEX 77504 [facility] GONZALESELAN, FOREARM 2 0 MEDICAL ROBE VIEWS IMAGING ASSOCIATE S PRESSURIZ 00924 TE[facility] JAVED ED/NONPRE 0 [facility] SSURIZED INC INC INHALATIO N TREATMENT ECG 98983 TELLO GRIFFIN, ROUTINE 0 [facility] W/LEAST PROF SERV 12 LDS I&R ONLY RADIOLOGI 83011 Russ ABREU EXAM 0 MEDICAL JUAN A P CHEST 2 IMAGING VIEWS ASSOCIATE FRONTAL&L S ATERAL ECG 73501 TELLO JAVED ROUTINE 0 [facility] ECG INC INC W/LEAST 12 LDS TRCG ONLY W/O I&R RADEX 14262 TELL[facility] JAVED WRIST 9 [facility] COMPLETE INC INC MINIMUM 3 VIEWS RADEX 47433 TELLO JAVED FOREARM 2 9 [facility] VIEWS INC INC THERAPEUT 65796 TELLO JAVED IC 9 [facility] PROPHYLAC INC INC TIC/DX INJECTION SUBQ/IM RADIOLOGI 09144 TELLO JAVED C EXAM 8 [facility] CHEST 2 INC INC VIEWS FRONTAL&L ATERAL AMBULANCE A0429 [facility] SERVICE 8 AMBULANCE AMBULANCE BLS SERVICE SERVICE EMERGENCY TRANSPORT RADIOLOGI 68604 Russ WADE EXAM 8 MEDICAL ROBE CHEST 2 IMAGING VIEWS ASSOCIATE FRONTAL&L S ATERAL GROUND A0425 [facility] PER SERVICE SERVICE STATUTE MILE RADIOLOGI 75413 Russ ABREU EXAM 8 MEDICAL JUAN A P CHEST 2 IMAGING VIEWS ASSOCIATE FRONTAL&L S ATERAL SBSQ 48330 [facility] 8 JRJR, CARE/DAY DELONTE MARTEL F 25 MINUTES RADIOLOGI 24941 Russ ABREU 8 MEDICAL JUAN A P EXAMINATI IMAGING ON CHEST ASSOCIATE SINGLE S VIEW FRONTAL RADIOLOGI 07052 Russ ABREU 8 MEDICAL JUAN A P EXAMINATI IMAGING ON CHEST ASSOCIATE SINGLE S VIEW FRONTAL SBSQ 91752 [facility] HOSPITAL 8 JR, JR, CARE/DAY DELONTE Blackman 25 MINUTES TUBE 93615 [facility] THORACOST 8 JR, JR, AVELINO DELONTE Blackman INCLUDES WATER SEAL RADIOLOGI 04009 [place] CARLO 8 MEDICAL JUAN A P EXAMINATI IMAGING ON CHEST ASSOCIATE SINGLE S VIEW FRONTAL RADIOLOGI 86883 [place] ELAN EXAM 8 MEDICAL ROBE CHEST 2 IMAGING VIEWS ASSOCIATE FRONTAL&L S ATERAL INITIAL 96935 [facility] INPATIENT 8 JR, JR, CONSULT DELONTE Blackman NEW/ESTAB PT 80 MIN OTHER 3409 TELLO JAVED INCISION 8 [facility] OF [place] INC INC RADIOLOGI 28761 [facility] C 8 MEDICAL MEDICAL EXAMINATI IMAGING IMAGING ON CHEST ASSOCIATE ASSOCI[place] [address] TELLO JAVED AMYLASE 8 [facility] INC INC COLLECTIO 62806 TELLO JAVED N VENOUS 8 [facility] BLOOD INC INC VENIPUNCT URE CREATINE 02982 TELLO JAVED KINASE MB 8 [facility] FRACTION INC INC ONLY THER 49717 TELLO JAVED PROPH/DX 8 [facility] NJX EA INC INC SEQL IV PUSH SBST/[place] [address] TELLO JAVED TROPONIN 8 [facility] QUANTITAT INC INC JUAN ECG 13416 TELLO WATKINS, ROUTINE 8 [facility] W/LEAST PROF SERV 12 LDS I&R ONLY HEPATIC 33106 TELLO JAVED FUNCTION 8 [facility] PANEL INC INC BLOOD 94283 TELLO JAVED COUNT 8 [facility] COMPLETE INC INC AUTO&[place] [address] TELLO JAVED LIPASE 8 [facility]OS[facility] INC INC THER 44672 TELLO JAVED PROPH/DX 8 [facility] NJX IV INC INC PUSH 1ST SBST/DRUG ECG 46649 TELLO JAVED ROUTINE 8 [facility] ECG INC INC W/LEAST 12 LDS TRCG ONLY W/O I&R CREATINE 85306 TELLO MEDINAON KINASE 8 [facility] H[facility] TOTAL INC INC BASIC 56829 TELLO TELLO METABOLIC 8 [facility] PANEL INC INC CALCIUM TOTAL RADEX ABD 49476 TELLO TELLO COMPL 8 MEM [facility] AQT ABD INC INC W/S/E/D VIEWS 1 VIEW CH OPHTH 41804 NÉSTOR PALM, MEDICAL 8 PIPPA DAS XM&EVAL W W COMPRE NEW PT 1/> VST DETERMINA 58671 NÉSTOR PALM TION 8 PIPPA DAS REFRACTIV W W E STATE Encounters Encounter Start End Date Code Location Performer Type Date EMERGENCY 19371 MON[facility] WILLIAMSON [address] [facility] T VISIT HIGH/URGE NT SEVERITY HOSPITAL TELLO - 7 7 [facility]PATIEN [facility] T EMERGENCY 96703 TELLO 7 7 [facility] T VISIT LOW/MODER SEVERITY OFFICE 23905 NÉSTOR RAMÍREZ 7 7 T VISIT 25 MINUTES HOSPITAL TELLO - 6 6 [facility] T EMERGENCY 48393 TELLO 6 6 [facility] T VISIT LIMITED/M INOR PROB EMERGENCY 95119 MONY LUCAS [address] [facility] T VISIT MODERATE SEVERITY HOSPITAL TELLO - 6 6 [facility] OUTPATIEN [facility] T EMERGENCY 72781 TELLO 6 6 [facility] T VISIT LIMITED/M INOR PROB EMERGENCY 20446 MONY NINA 6 6 PHYSICIAN MARIA ALEJANDRA [facility] T VISIT MODERATE SEVERITY HOSPITAL TELLO - 6 6 [facility] OUTPATIEN [facility] T EMERGENCY 40292 MONY NINA 6 [address] [facility] HIGH/URGE NT SEVERITY EMERGENCY 43358 TELLO 6 6 [facility] LOW/MODER SEVERITY OFFICE 93752 [facility] B[facility]ON OUTPATIEN 6 6 ELKO UMER T VISIT INTERNAL 15 MED MINUTES HOSPITAL TELLO - 6 6 [facility] INC T EMERGENCY 74521 MONY KENNEDYEY 6 6 PHYSICIAN [facility], [facility] VISIT MODERATE SEVERITY EMERGENCY 77949 TELLO 6 6 [facility] LOW/MODER SEVERITY EMERGENCY [address] TELLO [address] [facility] INC T VISIT LOW/MODER SEVERITY EMERGENCY 90607 MONY KENNEDYEY 6 6 PHYSICIAN [facility] S, [facility] T VISIT MODERATE SEVERITY HOSPITAL TELLO - 6 6 [facility]IEN INC T OFFICE 50652 [place] RAJ OUTPATIEN 5 5 ELKO DEYVI T VISIT INTERNAL 15 MEDI MINUTES EMERGENCY 95701 PUND CHR PUND CHR 3 3 DEPARTMEN T VISIT MODERATE SEVERITY OFFICE 88638 RAJ RAJ OUTPATIEN 3 3 DEYVI DEYVI T VISIT 10 MINUTES EMERGENCY 06701 GUNNER KAPLAN 3 3 DEPARTMEN T VISIT HIGH/URGE NT SEVERITY OFFICE 30718 RAJ RAJ OUTPATIEN 3 3 DEYVI DEYVI T VISIT 15 MINUTES OFFICE 95889 RAJ RAJ OUTPATIEN 3 3 DEYVI DEYVI T VISIT 15 MINUTES OFFICE 29448 RAJ RAJ OUTPATIEN 2 2 DEYVI DEYVI T VISIT 15 MINUTES EMERGENCY 68916 TERI WILLIAMSON 2 [facility]GE NT SEVERITY OFFICE 86462 BESSON BESSON OUTPATIEN 2 2 UMER UMER T VISIT 15 MINUTES OFFICE 75289 BESSON BESSON OUTPATIEN 2 2 UMER UMER T VISIT 25 MINUTES EMERGENCY 98013 TELLO 2 2 [facility] DEPARTMEN INC T VISIT HIGH/URGE NT SEVERITY HOSPITAL TELLO - 2 2 [facility] OUTPATIEN INC T EMERGENCY 24952 MARIZOL FONTANA 2 2 III MARVIN III MARVIN DEPARTMEN T VISIT MODERATE SEVERITY OFFICE 53965 BESSON BESSON OUTPATIEN 2 2 UMER UMER T VISIT 25 MINUTES EMERGENCY 86132 MARIZOL FONTANA DEPT 2 2 III MARVIN III MARVIN VISIT HIGH SEVERITY& THREAT FUNCJ EMERGENCY 81022 TELLO 1 1 [facility] DEPARTMEN INC T VISIT LOW/MODER SEVERITY HOSPITAL TELLO - 1 1 [facility] OUTPATIEN INC T EMERGENCY 29504 TELLO 1 1 [facility] DEPARTMEN INC T VISIT LOW/MODER SEVERITY HOSPITAL TELLO - 1 1 [facility] OUTPATIEN INC T EMERGENCY 04970 NÉSTOR FONTANA 1 1 EMERGENCY III [facility] SERVICES T VISIT HIGH/URGE NT SEVERITY HOSPITAL TELLO - 1 1 [facility] OUTPATIEN INC T HOSPITAL TELLO - 1 1 [facility] OUTPATIEN INC T HOSPITAL TELLO - 1 1 [facility] OUTPATIEN INC T EMERGENCY 97700 NÉSTOR DOUGLASS DEPT 1 1 EMERGENCY VISIT SERVICES HIGH SEVERITY& THREAT FUNCJ EMERGENCY 05466 TELLO 1 1 [facility] DEPARTMEN INC T VISIT MODERATE SEVERITY EMERGENCY 79099 TELLO 1 1 [facility] DEPARTMEN INC T VISIT LOW/MODER SEVERITY HOSPITAL TELLO - 1 1 [facility] OUTPATIEN INC T EMERGENCY 88772 NÉSTOR WILLIAMSON 1 [facility] H[facility]/URGE NT SEVERITY EMERGENCY 66054 NÉSTOR ELIZALDE DEPT 0 0 EMERGENCY [facility] VISIT SERVICES HIGH SEVERITY& THREAT FUNCJ EMERGENCY 50651 NÉSTOR WILLIAMSON 0 0 [facility] HIGH/URGE NT SEVERITY HOSPITAL TELLO - 0 0 [facility] OUTPATIEN INC T EMERGENCY 37412 TELLO 0 0 [facility] DEPARTMEN INC T VISIT LOW/MODER SEVERITY EMERGENCY 84459 TELLO 0 0 [facility] DEPARTMEN INC T VISIT LOW/MODER SEVERITY EMERGENCY 06343 NÉSTOR WILLIAMSON, 0 0 EMERGENCY [facility] SERVICES T VISIT HIGH/URGE ASSOCIATE NT S SEVERITY HOSPITAL TELLO - 0 0 [facility] OUTPATIEN INC T EMERGENCY 21296 NÉSTOR WILLIAMSON, 0 0 EMERGENCY [facility] SERVICES T VISIT MODERATE ASSOCIATE SEVERITY S HOSPITAL TELLO - 0 0 [facility] OUTPATIEN INC T EMERGENCY 26103 NÉSTOR WILLIAMSON, 0 0 EMERGENCY [facility] SERVICES T VISIT HIGH/URGE ASSOCIATE NT S SEVERITY [facility] T EMERGENCY [id number] [facility]LLO 0 0 [facility] DEPART[facility] T VISIT LOW/MODER SEVERITY EMERGENCY 38604 TELLO 9 9 [facility] T VISIT MODERATE SEVERITY [facility]OSP[facility] TELLO - 9 9 [facility] T [facility] TELLO - 9 9 [facility] T EMERGENCY [id number] NÉSTOR WILLIAMSON, 9 9 EMERGENCY [facility] SERVICES T VISIT HIGH/URGE ASSOCIATE NT S SEVERITY EMERGENCY 19545 TELLO 9 9 [facility] [place] T [facility]IT LIMITED/M INOR PROB HOSPITAL TELLO - 8 8 [facility] OUTPATIEN [facility] T OFFICE [id number] ALEISHA TUCKERWILLIAN [facility] 8 8 JR SAMEER, T VISIT DELONTE Blackman 15 MINUTES EMERGENCY 44753 TELLO 8 8 [facility] [place] T VISIT LOW/MODER SEVERITY HOSPITAL TELLO - 8 8 [facility] OUTPATIEN [facility] T EMERGENCY 60582 TELLO FRANCIS, 8 8 [facility] T VISIT PROF SERV HIGH/URGE NT SEVERITY HOSPITAL TELLO - 8 8 [facility] INPATIENT INC EMERGENCY 14010 TELLO 8 8 [facility] T VISIT HIGH/URGE NT SEVERITY HOSPITAL TELLO - 8 8 [facility] OUTPATIEN [facility] T EMERGENCY 09846 TELLO [place], 8 8 [facility] T VISIT PROF SERV MODERATE SEVERITY OFFICE 32013 DESIREE KIM 8 8 PRINCESS Maurice T VISIT INTERNAL 15 MED MINUTES
--- OUTSIDE RECORDS SUMMARY | 2017-05-10 10:36 | External Medical Summary Rpt ---
Author Author , Organization [employer] Address Unknown Phone Unavailable Care Team Providers Care Director Of Architecture Name Role Phone DELONTE MORAES JR, Unavailable Unavailable GARRETTWILLIAN ESTRELLADELONTEJAMAL UMER, BESSON Unavailable Unavailable UMER MICHAELSON UMER, BESSON Unavailable Unavailable UMER KAUSHAL MON A, Unavailable Unavailable BESSON, KAUSHAL A BREEDING ANA, Unavailable Unavailable BREEDING [facility]NA [facility] Unavailable Unavailable SERVICE, [facility] Unavailable Unavailable SERVICE, [facility] ANESTH OF Unavailable Unavailable [facility], [facility] ELAN ANA LAURA, Unavailable [...] WILLIAMSON ROBERT W, Unavailable Unavailable [facility]REVOR FRANC[facility] Un[facility] Un[facility], [facility] Unavailable Unavailable H[facility]PITAL P, [facility] CELIA WATKINS HARVEY, Unavailable Unavailable MARY SORIA Unavailable Unavailable HORMANN MAR, HORMANN Unavailable Unavailable MAR CHWE SHAYY, CHEW SHAYY Unavailable Unavailable FIDE MARTÍNEZ, FIDE Unavailable Unavailable MARTÍNEZ [facility] Unavailable Unavailable [facility], [facility]available [facility] Unavailable [...] 2016 Problems Code Diagnosis DOS Provider Status [id number] PAIN IN 03-04-2017 [facility]NEE [facility] [id number] PAIN IN 03-04-2017 [facility]KLE [facility] [id number] PAIN IN 03-04-2017 [facility] LEFT LOWER MEDICAL LEG IM[facility] ASS [id number] SPRAIN 03-04-2017 MONY UNSPECIFIED PHYSICIANS, SITE LT [facility] KNEE INITIAL ENCNTR Z720 TOBACCO USE 03-04-2017 [facility] G30435 OTHER 03-02-2017 [facility] VITREOUS OPACITIES BILATERAL H578 OTHER 03-02-2017 [facility] SPECIFIED DISORDERS OF EYE AND ADNEXA J209 ACUTE 10-07-2016 [facility] BRONCHITIS [facility] UNSPECIFIED INC J40 BRONCHITIS 10-07-2016 MONY NOT PHYSICIANS, SPECIFIED PLLC ACUTE OR CHRONIC J440 COPD WITH 10-07-2016 [facility] ACUTE LOWER [facility] INC RESPIRATORY INFECTION R05 COUGH 10-07-2016 [facility] J189 PNEUMONIA 04-22-2016 [facility] UNSPECIFIED PHYSICIANS, ORGANISM PLLC J9383 OTHER 04-22-2016 [facility] PNEUMOTHORA [facility] X INC J939 PNEUMOTHORA 04-22-2016 MON[facility] X PHYSICIANS, UNSPECIFIED PLLC R0789 OTHER CHEST 04-22-2016 [facility] PAIN [facility]ICAL [facility] R918 OTHER 04-22-2016 [facility] NONSPECIFIC MEDICAL ABNORMAL IMAGING ASS FINDING OF LUNG FIELD J430 UNILATERAL 04-21-2016 [facility] PULM [facility] EMPHYSEMA INC MACLEODS SYNDROME R079 CHEST PAIN 04-21-2016 [facility] UNSPECIFIED [facility]ICAL IMAGING ASS R0989 OTH SPEC SX 04-21-2016 [facility] & SIGNS MEDICAL INVLV THE IMAGING ASS CIRC & RESP SYS J069 ACUTE UPPER 01-22-2016 [facility] RESPIRATORY INTERNAL INFECTION MED UNSPECIFIED J449 CHRONIC 01-19-2016 [facility] OBSTRUCTIVE [facility] PULMONARY INC DISEASE UNS R091 PLEURISY 01-19-2016 [facility] PHYSICIANS, [facility] R042 HEMOPTYSIS 01-13-2016 [facility] PHYSICIANS, [facility] 462 ACUTE 07-31-2015 [facility] PHARYNGITIS [facility] INTERNAL MEDI 4779 ALLERGIC 07-31-2015 [facility] CAUSE INTERNAL UNSPECIFIED MEDI 63560 SHORTNESS 07-31-2015 [facility] OF BREATH [facility] P E8490 PLACE OF 07-31-2015 [facility] OCCURRENCE, [facility] P E9412 SYMPATHOMIM 07-31-2015 [facility] ETS [facility]US [facility] P EFFECT THERAPEUTIC USE V140 PERSONAL 07-31-[address] [facility] ALLERGY TO [facility] P PENICILLIN V8537 BODY MASS 07-31-2015 [facility] INDEX VALLEY 37.0-37.9 INTERNAL ADULT MEDI 7241 PAIN IN 06-13-2015 [facility] 02112 GENERALIZED 05-23-2015 JAY BENIGNO ANXIETY DISORDER 35608 UNSPECIFIED 03-25-2015 [facility] DENTAL ANESTH OF CARIES THE [facility]UE V154 PERS HX 11-08-2013 DEPT FOR PSYCHOLOGIC PUBLIC HLTH AL TRAUMA PRS [facility] 11917 PAIN IN 10-22-2013 ELAN JOINT, ANA LAURA FOREARM 06341 SPRAIN AND 10-22-2013 PUND CHR STRAIN OF UNSPECIFIED SITE OF WRIST E8889 UNSPECIFIED 10-22-2013 ELAN FALL ANA LAURA 5283 CELLULITIS 06-02-2013 RAJ AND ABSCESS DEYVI OF ORAL SOFT TISSUES 6823 CELLULITIS 05-28-2013 WELLS ROSAURA AND ABSCESS OF UPPER ARM AND FOREARM 94477 OTHER VOICE 01-12-2013 RAJ AND DEYVI RESONANCE DISORDERS 71869 POSTNASAL 01-12-2013 RAJ DRIP DEYVI 54005 OBESITY, 11-10-2012 RAJ UNSPECIFIED DEYVI 4720 CHRONIC 11-10-2012 RAJ RHINITIS DEYVI 27320 ASTHMA, 11-10-2012 RAJ UNSPECIFIED DEYVI , UNSPECIFIED STATUS 7862 COUGH 11-10-2012 RAJ DEYVI 490 BRONCHITIS 10-26-2012 RAJ NOT DEYVI SPECIFIED ACUTE OR CHRONIC 10493 UNSPECIFIED 10-26-2012 RAJ DEYVI RESPIRATORY ABNORMALITY 7906 OTHER 10-26-2012 RAJ ABNORMAL DEYVI BLOOD CHEMISTRY 8472 LUMBAR 09-11-2012 TERI STEFANIA SPRAIN AND STRAIN 56159 JAW PAIN 08-09-2012 BESSON UMER 4928 OTHER 07-12-2012 BESSON UMER EMPHYSEMA V7281 PRE-OPERATI 07-12-2012 BESSON UMER VE CARDIOVASCU LAR EXAMINATION 32356 PAIN IN 06-22-2012 [facility] JOINT, MEDICAL ANKLE AND IMAGING ASS FOOT 7823 EDEMA 06-22-2012 [facility] 00820 UNSPECIFIED 06-22-2012 WEHRMAN III SITE OF MARVIN ANKLE SPRAIN AND STRAIN E8888 OTHER FALL 06-22-2012 WEHRMAN III MARVIN 94833 PAIN IN 06-14-2012 MICHAELSON UMER JOINT, LOWER LEG 7840 HEADACHE 06-14-2012 BESSON UMER 47415 HEAD 12-30-2011 WEHRMAN III INJURY, MARVIN UNSPECIFIED 14117 SPASM OF 11-05-2011 [facility] MUSCLE [facility] 7295 PAIN IN 11-05-2011 [facility] SOFT [facility] TISSUES OF INC LIMB 64486 UNSPECIFIED 09-17-2011 [facility] RETINAL GRE DEFECT 33428 UNSPECIFIED 09-17-2011 [facility] SUBJECTIVE GRE VISUAL DISTURBANCE 03962 OTHER 09-17-2011 [facility] VISUAL GRE DISTORTIONS AND ENTOPTIC PHENOMENA 20149 OTHER 09-17-2011 [facility] VITREOUS GRE OPACITIES 0340 STREPTOCOCC 08-29-2011 [facility] AL SORE EMERGENCY THROAT SERVICES 52398 PAINFUL 08-29-2011 [facility] RESPIRATION EMERGENCY SERVICES 55679 OTHER CHEST 08-29-2011 [facility] PAIN [facility] INC 26508 CHEST PAIN 08-27-2011 [place] [facility] UNSPECIFIED SERV FOUNDATIO 2410 NONTOXIC 07-29-2011 [facility] UNINODULAR [facility] GOITER INC 7856 ENLARGEMENT 07-15-2011 [facility] OF LYMPH [facility] NODES INC 7842 SWELLING 07-07-2011 N[facility] MASS OR EMERGENCY LUMP IN SERVICES HEAD AND NECK 71908 SPRAIN AND 03-21-2011 [facility] STRAIN OF MEM [facility]OS[facility] CHONDROSTER INC NAL 8488 OTHER 03-21-2011 [facility] SPECIFIED EMERGENCY SITES OF SERVICES SPRAINS AND STRAINS 24962 OTHER 03-21-2011 [facility] INJURY OF AMBULANCE CHEST WALL SERVICE 5282 ORAL 07-07-2010 [facility] APHTHAE EMERGENCY SERVICES 86827 CONTUSION 03-31-2010 [facility] OF BACK [facility] INC 37906 SPRAIN AND 01-09-2010 [facility] STRAIN OF EMERGENCY UNSPECIFIED SERVICES SITE OF ASSOCIATES HAND E8498 OTHER 01-09-[address] OF IMAGING OCCURRENCE ASSOCIATES E9179 OTHER 01-09-2010 [facility] STRIKING EMERGENCY AGAINST SERVICES W/WO ASSOCIATES SUBSEQUENT FALL 4660 ACUTE 01-03-2010 [facility] BRONCHITIS [facility] PROF SERV 5110 PLEURISY 01-03-2010 [facility] WITHOUT [facility] HOSPITAL EFFUS/CURRE PROF SERV NT TB 5119 UNSPECIFIED 01-03-2010 [facility] PLEURAL EMERGENCY EFFUSION SERVICES ASSOCIATES 63276 MIGRAINE 09-13-2009 [facility] UNSP W/O EMERGENCY INTRACT W/O SERVICES STATUS ASSOCIATES MIGRAINOSUS 5128 OTHER 02-16-2008 [facility] PNEUMOTHORA MEDICAL X AND AIR IMAGING LEAK ASSOCIATES 8600 TRAUMAT 02-16-2008 ALEISHA ESTRELLA PNEUMO W/O DELONTE F MENTION OPEN WOUND INTO THOR 9093 LATE EFFECT 02-07-2008 [facility] COMPLICATIO INC NS SURGICAL&ME DICAL CARE V5881 FITTING AND 02-05-2008 [facility] ADJUSTMENT MEDICAL OF IMAGING VASCULAR ASSOCIATES CATHETER 93659 REFLUX 12-07-2007 [facility] ESOPHAGITIS [facility] PROF SERV 25476 ACUTE 12-07-2007 [facility] GASTRITIS [facility] MENTION OF PROF SERV HEMORRHAGE 46525 ABDOMINAL 12-07-2007 [facility] PAIN, MEDICAL UNSPECIFIED IMAGING SITE ASSOCIATES 24438 PAIN IN 11-19-2007 [facility] PELVIC INTERNAL REGION AND MED THIGH 3670 HYPERMETROP 11-12-2007 GALILEO PALM 56166 UNSPECIFIED 11-12-2007 PIPPA PALM ASTIGMATISM Procedures Procedure DOS Code Location Performer Comment RADEX 79447 [facility] JAVED ANKLE 7 [facility] COMPLETE INC INC MINIMUM 3 VIEWS RADIOLOGI 17527 TELLO JAVED C 7 [facility] EXAMINATI INC INC ON TIBIA & FIBULA 2 VIEWS RADIOLOGI 72461 TELLO JAVED C 7 [facility] EXAMINATI INC INC ON KNEE 3 VIEWS RADIOLOGI 55344 TELLO JAVED C EXAM 6 [facility] CHEST 2 INC INC VIEWS FRONTAL&L ATERAL RADIOLOGI 31728 KIERA ANSARI C EXAM 6 MEDICAL ANA LAURA CHEST 2 IMAGING VIEWS ASS FRONTAL&L ATERAL CT THORAX 57802 KIERA ANSARI W/O 6 MEDICAL ANA LAURA CONTRAST IMAGING MATERIAL ASS RADIOLOGI 36700 KEIRA ANSARI C EXAM 6 MEDICAL ANA LAURA CHEST 2 IMAGING VIEWS ASS FRONTAL&L ATERAL RADIOLOGI 45228 TELLO JAVED C EXAM 6 [facility] CHEST 2 INC INC VIEWS FRONTAL&L ATERAL RADIOLOGI 29753 TELLO JAVED C EXAM 6 [facility] CHEST 2 INC INC VIEWS FRONTAL&L ATERAL THERAPEUT 97223 [facility] RA[facility] IC 5 VALLEY DEYVI PROPHYLAC INTERNAL TIC/DX MEDI INJECTION SUBQ/IM INJECTION J3301 [facility] RAJ 5 VALLEY DEYVI TRIAMCINO INTERNAL LONE MEDI ACETONIDE NOS 10 MG ECG 43668 TELLO GRIFFIN JR ROUTINE [address] [facility] W/LEAST P 12 LDS I&R ONLY BMI [...] READING MEDI DOC F/U NOT REQUIRED RADEX 29675 KIERA ANSARI SPINE 5 MEDICAL ANA LAURA THORACIC IMAGING 3 VIEWS ASS PSYCHOTHE 74722 JAY JAY RAPY 5 BENIGNO BENIGNO W/PATIENT 45 MINUTES PSYCHOTHE 80637 JAY JAY RAPY 5 BENIGNO BENIGNO W/PATIENT 45 MINUTES PSYCHOTHE 70547 JAY JAY RAPY 5 BENIGNO BENIGNO W/PATIENT 45 MINUTES PSYCHOTHE 02190 JAY JAY RAPY 5 BENIGNO BENIGNO W/PATIENT 60 MINUTES PSYCHOTHE 92563 JAY JAY RAPY 5 BENIGNO BENIGNO W/PATIENT 45 MINUTES PSYCHOTHE 32885 JAY JAY RAPY 5 BENIGNO BENIGNO W/PATIENT 45 MINUTES PSYCHOTHE 01124 JAY JAY RAPY 5 BENIGNO BENIGNO W/PATIENT 60 MINUTES ANESTHESI 05869 COMMUNITY HORMANN A 5 ANESTH MAR INTRAORAL OF THE WITH BLUE BIOPSY NOS RADEX 96404 ELAN ELAN WRIST 3 ANA LAURA ANA LAURA COMPLETE MINIMUM 3 VIEWS PSYCHIATR 84431 JAY JAY IC 3 BENIGNO BENIGNO DIAGNOSTI C EVALUATIO N INCISION 93778 GUNNER KAPLAN & 3 DRAINAGE ABSCESS COMPLICAT ED/MULTIP LE SPMTRY 88267 RAJ RAJ W/VC 3 DEYVI DEYVI EXPIRATOR Y DARA W/WO MXML VOL VNTJ SPMTRY 81994 RAJ RAJ W/VC 2 DEYVI DEYVI EXPIRATOR Y DARA W/WO MXML VOL VNTJ ANESTHESI 14619 COMMUNITY BREEDING A 2 ANESTH ANA INTRAORAL OF THE WITH BLUE BIOPSY NOS ECG 43576 BESSON BESJAMAL ROUTINE 2 UMER UMER ECG W/LEAST 12 LDS W/I&R RADEX 08609 [facility] JAVED ANKLE 2 [facility] COMPLETE INC INC MINIMUM 3 VIEWS AMBULANCE A0429 [facility] 2 AMBULANCE AMBULANCE BLS SERVICE SERVICE EMERGENCY TRANSPORT GROUND A0425 [facility] MILEAGE 2 AMBULANCE AMBULANCE [place] [address] [facility] ELAN MAXILLOFA 2 MEDICAL ANA LAURA CIAL W/[place] [address] [facility] ELAN HEAD/BRAI 2 MEDICAL ANA LAURA N W/O IMAGING CONTRAST ASS MATERIAL CRTCHS E0114 [facility] UNDARM 1 OTH THAN WOOD PAIR PAD TIP&HNDGR IP RADIOLOGI 85417 [facility] ELAN C EXAM 1 MEDICAL ANA LAURA CHEST 2 IMAGING VIEWS ASS FRONTAL&[place] [address] TELLO JAVED STREPTOCO 1 [facility] CCUS INC INC GROUP A IAADI 99126 TELLO JAVED INFLUENZA 1 [facility] B VIRUS INC INC IAADI 30401 TELLO JAVED INFFLUENZ 1 [facility] A A VIRUS INC INC ECG 13364 TYLER NOLANDO ROUTINE 1 MEDICAL ECG SERV W/LEAST FOUNDATIO 12 LDS I&R ONLY COLLECTIO 76074 TELLO JAVED N VENOUS 1 [facility] [place] [address] TELLO JAVED FREE 1 [facility] [place] [address] TELLO JAVED THYROID 1 [facility] STIMULATI INC INC NG HORMONE TSH BLOOD 76752 TELLO JAVED COUNT 1 [facility] COMPLETE INC INC AUTO&AUTO DIFRNTL WBC COLLECTIO 21830 TELLO JAVED N VENOUS 1 [facility] BLOOD INC INC VENIPUNCT URE COMPREHEN 66066 TELLO JAVED SIVE 1 [facility] METABOLIC INC INC PANEL CUL BACT 08875 [facility] JAVED XCPT 1 [facility] URINE INC INC BLOOD/STO OL AEROBIC ISOL 3D 84323 [facility] RENDERING 1 MEDICAL ANA LAURA IMAGING W/INTERP& ASS POSTPROC DIFF WORK STATION CT SOFT 20000 [facility] TISSUE 1 MEDICAL ANA LAURA NECK IMAGING W/CONTRAS ASS T MATERIAL GROUND A0425 [facility]UL[facility] PER SERVICE SERVICE STATUTE MILE AMB A0427 [facility] 1 AMBULANCE AMBULANCE ALS SERVICE SERVICE EMERGENCY TRANSPORT LEVEL 1 RADEX 60141 [facility] RIBS UNI 1 MEDICAL ANA LAURA W/POSTERO IMAGING ANT CH [place] [address] [place] [address] [facility] HEAD/BRAI 0 MEDICAL ANA LAURA N W/O IMAGING CONTRAST ASS MATERIAL RADIOLOGI 29469 [facility] [place] SCALF ANA C EXAM 0 RADIOLOGY CHEST 2 VIEWS FRONTAL&L ATERAL URNLS DIP 64286 [facility] JAVED 0 [facility] STICK/TAB INC INC LET REAGENT AUTO MICROSCOP Y RADEX 38638 [facility] ELAN, HAND 0 MEDICAL ROBE MINIMUM 3 IMAGING VIEWS ASSOCIATE S RADEX 67208 [facility] GONZALESELAN, FOREARM 2 0 MEDICAL ROBE VIEWS IMAGING ASSOCIATE S PRESSURIZ 28210 [facility] JAVED ED/NONPRE 0 [facility] SSURIZED INC INC INHALATIO N TREATMENT ECG 22977 TELLO GRIFFIN, ROUTINE 0 [facility] W/LEAST PROF SERV 12 LDS I&R ONLY RADIOLOGI 75886 Russ ABREU EXAM 0 MEDICAL JUAN A P CHEST 2 IMAGING VIEWS ASSOCIATE FRONTAL&L S ATERAL ECG 22743 [facility] JAVED ROUTINE 0 [facility] ECG INC INC W/LEAST 12 LDS TRCG ONLY W/O I&R RADEX 33918 TELL[facility] JAVED WRIST 9 [facility] COMPLETE INC INC MINIMUM 3 VIEWS RADEX 25025 TELLO JAVED FOREARM 2 9 [facility] VIEWS INC INC THERAPEUT 97462 TELLO JAVED IC 9 [facility] PROPHYLAC INC INC TIC/DX INJECTION SUBQ/IM RADIOLOGI 36198 TELLO JAVED C EXAM 8 [facility] CHEST 2 INC INC VIEWS FRONTAL&L ATERAL AMBULANCE A0429 [facility] 8 AMBULANCE AMBULANCE BLS SERVICE SERVICE EMERGENCY TRANSPORT RADIOLOGI 92243 Russ WADE EXAM 8 MEDICAL ROBE CHEST 2 IMAGING VIEWS ASSOCIATE FRONTAL&L S ATERAL GROUND A0425 [facility] AMBULANCE AMBULANCE PER SERVICE SERVICE STATUTE MILE RADIOLOGI 68527 Russ ABREU EXAM 8 MEDICAL JUAN A P CHEST 2 IMAGING VIEWS ASSOCIATE FRONTAL&L S ATERAL SBSQ 92265 [facility] 8 JRJR, CARE/DAY DELONTE MARTEL F 25 MINUTES RADIOLOGI 21885 Russ ABREU 8 MEDICAL JUAN A P EXAMINATI IMAGING ON CHEST ASSOCIATE SINGLE S VIEW FRONTAL RADIOLOGI 48295 Russ ABREU 8 MEDICAL JUAN A P EXAMINATI IMAGING ON CHEST ASSOCIATE SINGLE S VIEW FRONTAL SBSQ 65753 [facility] 8 JR, JR, CARE/DAY DELONTE Blackman 25 MINUTES TUBE 59271 [facility] THORACOST 8 JR, JR, AVELINO DELONTE Blackman INCLUDES WATER SEAL RADIOLOGI 02173 [facility] CARLO 8 MEDICAL JUAN A P EXAMINATI IMAGING ON CHEST ASSOCIATE SINGLE S VIEW FRONTAL RADIOLOGI 36704 [facility] ELAN EXAM 8 MEDICAL ROBE CHEST 2 IMAGING VIEWS ASSOCIATE FRONTAL&L S ATERAL INITIAL 25813 [facility] INPATIENT 8 JR, JR, CONSULT DELONTE Blackman NEW/ESTAB PT 80 MIN OTHER 3409 TELLO JAVED INCISION 8 [facility] INC INC RADIOLOGI 11565 [facility] C 8 MEDICAL MEDICAL EXAMINATI IMAGING IMAGING ON CHEST ASSOCIATE [place]OCI[place] [address] TELLO JAVED AMYLASE 8 [facility] INC INC COLLECTIO 27358 TELLO JAVED N VENOUS 8 [facility] BLOOD INC INC VENIPUNCT URE CREATINE 67330 TELLO JAVED KINASE MB 8 [facility] FRACTION INC INC ONLY THER 67845 TELLO JAVED PROPH/DX 8 [facility] NJX EA INC INC SEQL IV PUSH SBST/[place] [address] TELLO JAVED TROPONIN 8 [facility] QUANTITAT INC INC JUAN ECG 21611 TELLO WATKINS, ROUTINE 8 [facility] W/LEAST PROF SERV 12 LDS I&R ONLY HEPATIC 33142 TELLO JAVED FUNCTION 8 [facility] PANEL INC INC BLOOD 04000 TELLO JAVED COUNT 8 [facility] COMPLETE INC INC AUTO&[place] [address] TELLO JAVED LIPASE 8 [facility] INC INC THER 18319 TELLO JAVED PROPH/DX 8 [facility] NJX IV INC INC PUSH 1ST SBST/DRUG ECG 50698 TELLO JAVED ROUTINE 8 [facility] ECG INC INC W/LEAST 12 LDS TRCG ONLY W/O I&R CREATINE 35466 TELLO MEDINAON KINASE 8 [facility] TOTAL INC INC BASIC 62121 TELLO TELLO METABOLIC 8 [facility] PANEL INC INC CALCIUM TOTAL RADEX ABD 61266 TELLO TELLO COMPL 8 [facility] AQT ABD INC INC W/S/E/D VIEWS 1 VIEW CH OPHTH 12079 [facility]OR PALM, MEDICAL 8 PIPPA DAS XM&EVAL W W COMPRE NEW PT 1/> VST DETERMINA 80683 [facility] PALM TION 8 PIPPA DAS REFRACTIV W W E STATE Encounters Encounter Start End Date Code Location Performer Type Date EMERGENCY 45948 MON[facility] WILLIAMSON 7 7 PHYSICIAN LEONEL S [facility] T VISIT HIGH/URGE NT SEVERITY HOSPITAL TELLO - [address] [facility] OUTPATIEN [facility] T EMERGENCY 25022 TELLO 7 7 [facility] T VISIT LOW/MODER SEVERITY OFFICE 58099 NÉSTOR RAMÍREZ 7 7 T VISIT 25 MINUTES HOSPITAL TELLO - 6 6 [facility] T EMERGENCY 97487 TELLO 6 6 [facility] T VISIT LIMITED/M INOR PROB EMERGENCY 41979 MONY LUCAS 6 6 PHYSICIAN LEONEL S [facility] T VISIT MODERATE SEVERITY HOSPITAL TELLO - 6 6 [facility] OUTPATIEN [facility] T EMERGENCY 14754 TELLO 6 6 [facility] T VISIT LIMITED/M INOR PROB EMERGENCY 93031 MONY NINA 6 6 PHYSICIAN MARIA ALEJANDRA CASTANEDA S [facility] T VISIT MODERATE SEVERITY HOSPITAL TELLO - 6 6 [facility] OUTPATIEN [facility] T EMERGENCY 63108 MONY NINA 6 6 PHYSICIAN MARIA ALEJANDRA [facility] HIGH/URGE NT SEVERITY EMERGENCY 13281 TELLO 6 6 [facility] VIS[facility] LOW/MODER SEVERITY OFFICE 33910 [facility] BESSON OUTPATIEN 6 6 [place] [facility] T VISIT INTERNAL 15 MED MINUTES HOSPITAL TELLO - 6 6 [facility] OUTPATIEN INC T EMERGENCY 55529 MONY KENNEDYEY 6 6 PHYSICIAN [facility] T VISIT MODERATE SEVERITY EMERGENCY 55635 TELLO 6 6 [facility] T VISIT LOW/MODER SEVERITY EMERGENCY 18108 TELLO 6 6 [facility] INC T VISIT LOW/MODER SEVERITY EMERGENCY 24522 MONY KENNEDYEY 6 6 PHYSICIAN [facility], [facility] T VISIT MODERATE SEVERITY HOSPITAL TELLO - 6 6 [facility] OUTPATIEN INC T OFFICE 77365 [facility] RA[facility] OUTPATIEN 5 5 [place] DEYVI T VISIT INTERNAL 15 MEDI MINUTES EMERGENCY 37070 PUND CHR PUND CHR 3 3 DEPARTMEN T VISIT MODERATE SEVERITY OFFICE 84280 RAJ RAJ OUTPATIEN 3 3 DEYVI DEYVI T VISIT 10 MINUTES EMERGENCY 30806 GUNNER KAPLAN 3 3 DEPARTMEN T VISIT HIGH/URGE NT SEVERITY OFFICE 21117 RAJ RAJ OUTPATIEN 3 3 DEYVI DEYVI T VISIT 15 MINUTES OFFICE 96218 RAJ RAJ OUTPATIEN 3 3 DEYVI DEYVI T VISIT 15 MINUTES OFFICE 06250 RAJ RAJ OUTPATIEN 2 2 DEYVI DEYVI T VISIT 15 MINUTES EMERGENCY 00293 [facility]URGE NT SEVERITY OFFICE 96783 [facility] BESSON OUTPATIEN 2 2 UMER UMER T VISIT 15 MINUTES OFFICE 18468 [facility] OUTPATIEN 2 2 UMER UMER T VISIT 25 MINUTES EMERGENCY 18496 TELLO 2 2 [facility] DEPARTMEN INC T VISIT HIGH/URGE NT SEVERITY HOSPITAL TELLO - 2 2 [facility] OUTPATIEN INC T EMERGENCY 72434 MARIZOL FONTANA 2 2 III MARVIN III MARVIN DEPARTMEN T VISIT MODERATE SEVERITY OFFICE 39566 [facility] BESSON OUTPATIEN 2 2 UMER UMER T VISIT 25 MINUTES EMERGENCY 22600 MARIZOL FONTANA DEPT 2 2 III MARVIN III MARVIN VISIT HIGH SEVERITY& THREAT FUNCJ EMERGENCY 51632 TELLO 1 1 [facility] DEPARTMEN [facility] T VISIT LOW/MODER SEVERITY [facility]OSPITAL TELLO - 1 1 [facility] INC T EMERGENCY 99763 TELLO 1 1 [facility] DEPARTMEN INC T VISIT LOW/MODER SEVERITY HOSPITAL TELLO - 1 1 [facility] OUTPATI[facility] INC T EMERGENCY [id number] NÉSTOR FONTANA 1 1 EMERGENCY III [facility] T VISIT HIGH/URGE NT SEVERITY HOSPITAL TELLO - 1 1 [facility] T [facility]PITAL TELLO - 1 1 [facility] TELLO - 1 1 [facility] INC T EMERGENCY 16531 NÉSTOR DOUGLASS DEPT 1 1 EMERGENCY VISIT SERVICES HIGH SEVERITY& THREAT FUNCJ EMERGENCY 06227 TELLO 1 1 [facility] DEPARTMEN INC T VISIT MODERATE SEVERITY EMERGENCY 56764 TELLO 1 1 [facility] DEPART[facility] INC T VISIT LOW/MODER SEVERITY HOSPITAL TELLO - 1 1 [facility] INC T EMERGENCY 00132 [facility] H[facility]URGE NT SEVERITY EMERGENCY 55964 NÉSTOR ELIZALDE DEPT 0 0 EMERGENCY [facility] VISIT SERVICES HIGH SEVERITY& THREAT FUNCJ EMERGENCY 61139 NÉST[facility] WILLIAMSON [facility] H[facility]URGE NT SEVERITY [facility] TELLO - 0 0 [facility] OUTPATIEN INC T EMERGENCY 93834 TELLO 0 0 [facility] DEPARTMEN INC T VISIT LOW/MODER SEVERITY EMERGENCY 54746 TELLO 0 0 [facility] DEPARTMEN INC T VISIT LOW/MODER SEVERITY EMERGENCY 39006 NÉSTOR WILLIAMSON, 0 0 EMERGENCY [facility] SERVICES T VISIT HIGH/URGE ASSOCIATE NT S SEVERITY HOSPITAL TELLO - 0 0 [facility] OUTPATIEN INC T EMERGENCY 48018 NÉSTOR WILLIAMSON, 0 0 EMERGENCY [facility] SERVICES T VISIT MODERATE ASSOCIATE SEVERITY S HOSPITAL TELLO - 0 0 [facility] OUTPATIEN INC T EMERGENCY 70944 NÉSTOR WILLIAMSON, 0 0 EMERGENCY [facility] SERVICES T VISIT HIGH/URGE ASSOCIATE NT S SEVERITY HOSPITAL TELLO - 0 0 [facility] OUTPATIEN INC T EMERGENCY 12922 TELLO 0 0 [facility] DEPARTMEN INC T VISIT LOW/MODER SEVERITY EMERGENCY 57430 TELLO 9 9 [facility] DEPARTMEN INC T VISIT MODERATE SEVERITY HOSPITAL TELLO - 9 9 [facility] T HOSPITAL TELLO - 9 9 [facility] INC T EMERGENCY 00862 NÉSTOR WILLIAMSON, 9 9 EMERGENCY [facility] SERVICES T VISIT HIGH/URGE ASSOCIATE NT S SEVERITY EMERGENCY 67482 TELLO 9 9 [facility] T VISIT LIMITED/M INOR PROB HOSPITAL TELLO - [address] [facility] OUTPATIEN [facility] T OFFICE 92882 ALEISHA TUCKERWILLIAN [facility] 8 8 JR SAMEER, T VISIT DELONTE Blackman 15 MINUTES EMERGENCY 43155 TELLO 8 8 [facility] T VISIT LOW/MODER SEVERITY HOSPITAL TELLO - [address] [facility] OUTPATIEN [facility] T EMERGENCY 27242 TELLO FRANCIS, 8 8 [facility] T VISIT PROF SERV HIGH/URGE NT SEVERITY HOSPITAL TELLO - 8 8 [facility] INPATIENT INC EMERGENCY 12268 TELLO 8 8 [facility] T VISIT HIGH/URGE NT SEVERITY HOSPITAL TELLO - 8 8 [facility] OUTPATIEN [facility] T EMERGENCY 36387 TELLO [place], 8 8 [facility] T VISIT PROF SERV MODERATE SEVERITY OFFICE 02600 DESIREE KIM 8 8 [facility]INCESS Maurice T VISIT INTERNAL 15 MED MINUTES
--- OUTSIDE RECORDS SUMMARY | 2017-05-10 10:37 | External Medical Summary Rpt ---
Author Author [employer] Jacobsen, [employer] Organization [employer] Address Unknown Phone Unavailable Results Streptococcus pyogenes Ag [Presence] in Unspecified specimen Observa Value Referen Units Interpr Notes Date tion ce etation Range Strepto NEGATIV No No No No Alexandre 24 coccus E informa informa informa informa 2017 pyogene tion in tion in tion in tion in 12:50 s Ag source source source source AM [Presen data data data data ce] in Unspeci fied specime n
--- OUTSIDE RECORDS SUMMARY | 2017-05-10 10:37 | External Medical Summary Rpt ---
Author Author , Organization [employer] Address Unknown Phone Unavailable Purpose Continuity of Care Document - 07-25-1997 through 2016 Immunization Name Date Route CVX Reacti Commen Provid Is Given on t er Refuse d MMR Histor H149 No 1996 ical Inform ation - Source Unspec ified
[2017-05-10 10:44] LABS: LYMPH # 1.8 K/mm3 (0.7-4.5); LYMPH % 22.4 % (10-50)
[2017-05-10 10:53] LABS: HEMOGLOBIN 16.6 g/dL (14.1-18.0)
[2017-05-10 11:26] LABS: BUN 18 mg/dL (7-18)
--- NOTE | 2017-05-10 11:35 | RADIOLOGY REPORT PS360 ---
CTA-CHEST HISTORY: SOA, CHEST PAIN ORDERING PHYSICIAN: Steph Coker MD PATIENT AGE: 32 years TECHNIQUE: Helical acquisition obtained following the bolus administration of 60 mL of Isovue 370 followed by a saline bolus. Axial, sagittal, and coronal reformatted images are generated and reviewed. COMPARISON: 04/21/2016 FINDINGS: There is no evidence of pulmonary embolus, aortic aneurysm, or aortic dissection. No mediastinal or hilar mass. There are postsurgical changes with multiple clips in the right upper lobe. There is no evidence of pneumothorax. Prominent bleb is present in the right lung base as before. Previously noted right basilar pneumothorax is not apparent. There are scattered blebs in both lower lobes. No lobar consolidation or collapse. No areas of infiltrate. Minimal atelectatic changes are present in the left lower lobe. There are some mild fibrotic changes in the right apex. There are a few small apical blebs. No acute bony anomalies. Upper abdomen is unremarkable. IMPRESSION: 1. No evidence of pulmonary embolus. 2. Postsurgical changes on the right with a large bleb in the right lung base. 3. No evidence of pneumothorax with postsurgical changes noted on the right.
[2017-05-10 11:36] LABS: GFR (ESTIMATED) 71 ML/MIN (>60)
[2017-05-10 11:53] VITALS: BP 110/68
--- NOTE | 2017-05-10 13:00 | RADIOLOGY REPORT PS360 ---
CHEST-PORTABLE HISTORY: acute pleurisy reports hx of PTX w/o intervention this yr ORDERING PHYSICIAN: Steph Coker MD PATIENT AGE: 32 years COMPARISON: 10/07/2015 FINDINGS: Normal heart size. Postsurgical changes on the right with multiple surgical overlying the right mid and upper lungs are chronic changes in the right lung base with a prominent bleb in the right lower lobe. No obvious pneumothorax. IMPRESSION: 1. No change with no acute finding. 2. Chronic changes with postsurgical change on the right and prominent bleb in the right lung base
== END 2017-05-10 11:55 | disposition home or self-care (01) ==
LOC: ER 10:13
PROVIDERS: Emergency Medicine
DX: R09.1 Pleurisy (principal); J43.9 Emphysema, unspecified; Z72.0 Tobacco use; I10 Essential (primary) hypertension
CPT/HCPCS: Q9967

== ENCOUNTER 2017-09-27 16:26 | Emergency (ER) | payer MEDICARE, MEDICAID ==
[~2017-09-27] VITALS: Ht 175.3 cm; Wt 129.7 kg
[~2017-09-27 16:26] MED LIST changes: +BACTRIM DS 8001 TA1 PO; +BACTROBAN2% TP
--- OUTSIDE RECORDS SUMMARY | 2017-09-27 16:33 | External Medical Summary Rpt | CCD ---
Author Author , CYNTHIA MARIE Address Unknown Phone [email or web address] Care Team Providers Care Public Information Specialist Name Role Phone Erwin Tristan Unavailable Unavailable , Erwin Tristan MD Purpose Continuity of Care Document - 05-28-2013 through 2016 Problems Code Diagnosis DOS Provider Status 305.1 305.1 10-22-2013 [place] TOBACCO USE [facility] 413.9 413.9 10-22-2013 [place] ANGINA [facility] PECTORIS [facility] NEC/NOS 493.90 493.90 10-22-2013 [place] ASTHMA, [facility] UNSPECIFIED Hospital 496 496 CHR 10-22-2013 [place] AIRWAY [facility] OBSTRUCT [facility] NEC 842.00 842.00 10-22-2013 [place] SPRAIN OF [facility] J02.9 ACUTE PHARYNGITIS , UNSPECIFIED J18.9 PNEUMONIA, UNSPECIFIED ORGANISM J20.9 ACUTE BRONCHITIS, UNSPECIFIED J40 BRONCHITIS, NOT SPECIFIED ACUTE OR CHRONIC J43.9 EMPHYSEMA, UNSPECIFIED J93.9 PNEUMOTHORA X, UNSPECIFIED 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 R04.2 HEMOPTYSIS R09.1 PLEURISY S29.019A STRAIN OF MUSCLE AND TENDON OF UNSP WALL OF THORAX, INIT S61.219A LACERATION W/O FB OF UNSP FINGER W/O DAMAGE TO NAIL, INIT S83.90XA SPRAIN OF UNSPECIFIED SITE OF UNSPECIFIED KNEE, INIT ENCNTR T78.40XA ALLERGY, UNSPECIFIED , INITIAL ENCOUNTER Allergies, Adverse Reactions, Alerts Type Drug Allergy [...] O2% 98 % Respiratory 18 /min Rate Results Labs Lab Lab Date Result Refere Interp Status Commen Order Detail nces retati t Range on Gram negative automated antibiotic susceptibility test (09-09-2017 06:23) Vancomy 09-09-2 = 1 complet yulissa 017 ug/ml ed suscept 06:23 ibility test by minimum inhibit ory concent ration Tetracy 2 <= 1 complet peters 017 ug/ml ed suscept 06:23 ibility test by minimum inhibit ory concent ration Trimeth 2 <= 10 complet oprim/s 017 ug/ml ed ulfamet 06:23 hoxazol e suscept ibility test by minimum inhibit ory concent ration Rifampi 09-09-2 <= 0.5 complet n 017 ug/ml ed suscept 06:23 ibility test by minimum inhibit ory concent ration Penicil 2 = 0.06 complet keerthi G 017 ug/ml ed suscept 06:23 ibility test by minimum inhibit ory concent ration Oxacill 2 <= 0.25 complet in 017 ug/ml ed suscept 06:23 ibility test by minimum inhibit ory concent ration Levoflo 11-02-2 = 0.25 complet xacin 017 ug/ml ed suscept 06:23 ibility test by minimum inhibit ory concent ration Gentami 09-09-2 <= 0.5 complet yulissa 017 ug/ml ed suscept 06:23 ibility test by minimum inhibit ory concent ration Erythro 09-09-2 <= 0.25 complet mycin 017 ug/ml ed suscept 06:23 ibility test by minimum inhibit ory concent ration Clindam 09-09-2 <= 0.25 complet ycin 017 ug/ml ed suscept 06:23 ibility test by minimum inhibit ory concent ration Wound culture (09-07-2017 14:50) Comment: COMMENTS TO ANALYTICAL STRATEGIST: wound aspirate Wound [id number] complet culture 017 ed 14:50 Staphyl ococcus aureus SCT SAUR STAPHYL OCOCCUS AUREUS L Streptococcus pyogenes Ag [Presence] in Unspecified specimen (05-01-2017 00:50) Strepto NEGATIV complet coccus 017 E ed pyogene 00:50 s Ag [Presen ce] in Unspeci fied specime n Encounters Encounter Start End Date Code Location Performer Type Date Emergency MELITON Tristan MD (ER) 3 21:53 3 22:32 [facility] er R. Emergency MELITON Durham MD (ER) 3 16:24 3 16:59 [facility] [place]
--- OUTSIDE RECORDS SUMMARY | 2017-09-27 16:33 | External Medical Summary Rpt | CCD ---
Author Author [employer] Organization [employer] Address Unknown Phone Unavailable Purpose Continuity of Care Document - through 2016
--- OUTSIDE RECORDS SUMMARY | 2017-09-27 16:33 | External Medical Summary Rpt | CCD ---
Author Author , CYNTHIA MARIE Address Unknown Phone [email or web address] Care Team Providers Care Ferryboat Ticket Taker Name Role Phone Erwin Tristan Unavailable Unavailable , Erwin Tristan MD Purpose Continuity of Care Document - 05-28-2013 through 2016 Problems Code Diagnosis DOS Provider Status 305.1 305.1 10-22-2013 [place] TOBACCO USE [facility] 413.9 413.9 10-22-2013 [place] ANGINA [facility] PECTORIS [facility] NEC/NOS 493.90 493.90 10-22-2013 [place] ASTHMA, [facility] UNSPECIFIED Hospital 496 496 CHR 10-22-2013 [place] AIRWAY [facility] OBSTRUCT [facility] NEC 842.00 842.00 10-22-2013 [place] SPRAIN OF [facility] Hospital J02.9 ACUTE PHARYNGITIS , UNSPECIFIED [...] Wound culture (09-07-2017 14:50) Comment: COMMENTS TO CHANGE MANAGER: wound aspirate Wound [id number] complet culture 017 ed 14:50 Staphyl ococcus aureus SCT SAUR STAPHYL OCOCCUS AUREUS L Streptococcus pyogenes Ag [Presence] in Unspecified specimen (05-01-2017 00:50) Strepto NEGATIV complet coccus 017 E ed pyogene 00:50 s Ag [Presen ce] in Unspeci fied specime n Encounters Encounter Start End Date Code Location Performer Type Date Emergency MELITON Tristan MD (ER) 3 21:53 3 22:32 [facility] er R. Emergency MELITON Durham MD (ER) 3 16:24 3 16:59 [facility]
--- OUTSIDE RECORDS SUMMARY | 2017-09-27 16:34 | External Medical Summary Rpt | CCD ---
Author Author , CYNTHIA MRAIE Address Unknown Phone [email or web address] Support Name Relationship Address Phone MIHAELA, Next Of Kin Unknown Unavailable MUSTAPHA Immunization Name Date Rout CVX Reac Dose Comm Prov Is Faci e tion ent ider Refu lity Give sed n Infl 11-1 150 999 Hist ELE4 No ELE4 uenz 5-20 oric 4 4 a 17 al Quad Info Inj rmat ion - Sour ce Unsp ecif ied MMR 09-1 Intr 3 999 Hist H149 No H149 7-19 amus oric 97 cula al r Info rmat ion - Sour ce Unsp ecif ied
--- OUTSIDE RECORDS SUMMARY | 2017-09-27 16:34 | External Medical Summary Rpt | CCD ---
Author Author , CYNTHIA MARIE Address Unknown Phone [email or web address] Support Name Relationship Address Phone MIHAELA, Next [...]
--- OUTSIDE RECORDS SUMMARY | 2017-09-27 16:34 | External Medical Summary Rpt ---
Author Author [employer], [employer] Organization [employer] Address Unknown Phone Unavailable Results CBC W Auto Differential panel in Blood Observa Value Referen Units Interpr Notes Date tion ce etation Range Basophils 0 - 0.2 K/MM3 Normal No May 10 inform2016 [#/volume on in 10:30 AM ] in source Blood by data Automated count Basophils 0.1 - 2.0 % Normal No May 10 / inform2016 leukocyte on in 10:30 AM s in source Blood by data Automated count Eosinophi 0.0 - 0.4 K/mm3 Normal No May 10 ls informati 2016 [#/volume on in 10:30 AM ] in source Blood by data Automated count Eosinophi 0.1 - % Normal No May 10 ls/100 12.0 2016 leukocyte on in 10:30 AM s in source Blood by data Automated count Granulocy 1.3 - 8.0 K/mm3 Normal No May 10 nathaniel inform2016 [#/volume on in 10:30 AM ] in source Blood by data Automated count Granulocy 37.0 - % Normal No May 10 nathaniel/100 80.0 2016 leukocyte on in 10:30 AM s in source Blood by data Automated count Hematocri 42.0 - % Normal No May 10 t [Volume 52.0 ati 2016 on in 10:30 AM Fraction] source of Blood data Hemoglobi 14.1 - g/dL Normal No May 10 n 18.0 2016 [Mass/vol on in 10:30 AM ume] in source Blood data Lymphocyt 0.7 - 4.5 K/mm3 Normal No May 10 es informati 2016 [#/volume on in 10:30 AM ] in source Unspecifi data ed specimen by Automated count Lymphocyt 10 - 50 % Normal No May 10 es informati 2016 [#/volume on in 10:30 AM ] in source Unspecifi data ed specimen by Automated count Erythrocy 27 - 31.2 pg Normal No May 10 te mean 2016 corpuscul on in 10:30 AM ar source hemoglobi data n [Entitic mass] Erythrocy 31.8 - g/dl Normal No May 10 te mean 35.4 2016 corpuscul on in 10:30 AM ar source hemoglobi data n concentra tion [Mass/vol ume] by Automated count Erythrocy 82.2 - fl Normal No May 10 te mean 97.8 2016 corpuscul on in 10:30 AM ar volume source [Entitic data volume] by Automated count Monocytes 0.1 - 1.0 K/mm3 Normal No May 10 informati 2016 [#/volume on in 10:30 AM ] in source Blood by data Automated count Monocytes 1.7 - 9.3 % Normal No May 10 /100 inform2016 leukocyte on in 10:30 AM s in source Blood by data Automated count Platelet 7.4 - fl Low No May 10 mean 10.4 inform2016 volume on in 10:30 AM [Entitic source volume] data in Blood by Automated count Platelets 142 - 424 K/mm3 Normal No May 10 informati 2016 [#/volume on in 10:30 AM ] in source Blood data Erythrocy 4.6 - 6.2 M/mm3 Normal No May 10 nathaniel inform2016 [#/volume on in 10:30 AM ] in source Amniotic data fluid Erythrocy 11.5 - % Normal No May 10 te 17.5 inform2016 distribut on in 10:30 AM ion width source [Entitic data volume] by Automated count Leukocyte 4.8 - K/MM3 Normal No May 10 s 10.8 informati 2016 [#/volume on in 10:30 AM ] in source Blood data Streptococcus pyogenes Ag [Presence] in Unspecified specimen Observa Value Referen Units Interpr Notes Date tion ce etation Range Strepto NEGATIV No No No No May 01 coccus E informa informa informa informa 2017 pyogene tion in tion in tion in tion in 12:50 s Ag source source source source AM [Presen data data data data ce] in Unspeci fied specime n
--- NOTE | 2017-09-27 16:46 | Urgent Treatment Center Report ---
History of Present Issue Date/Time Seen by Provider 09/27/17 3655 Visit Reason Pt arrived:Walked Presenting Problem:PT C/O RT HAND AND SHOULDER PAIN X3 DAYS Location if Accident: Onset of symptoms date/time:/ or onset unknown for:MEDICAL HX UNKNOWN Have you (or family members/close friends) recently traveled outside the [place]? N If Yes, where/when: Have you had exposure to infectious disease within the past month? TB? Other? Specify: c/o pain right upper extremity. Started 3-4 days ago in right wrist. No known injury. Pain worse with wrist ROM. Isn't sure if work related to not but shifts frequently with right hand and thinks may be related. Since onset, hasn't been using right upper extremity as much and now right hand "seems more swollen" then left. tingly sensations at time. Pain radiating up into right shoulder. 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 No improvement with ibuprofen but hasn't taken it since day before yesterday. Adament he gets wrist and shoulder xrays although we discussed this and seems unnecessary. Denies neck pain, no fevers. Source patient Exam Limitations no limitations ALLERGIES Coded Allergies: Penicillins (10/07/16) Home Medications Active Scripts SULFAMETHOXAZOLE W/TRIMETHOPRI (Bactrim Ds Tab) 1 TABLET PO BID #20 TAB Prov: 09/07/17 MUPIROCIN 2% (Bactroban Oint) 1 ALEX TP BID #1 TUBE Prov: 09/07/17 History Medical History General CAD? No Angina: Yes MD: No Hypertension? No Hyperlipidemia? No CHF? No DVT? No PE? No COPD? Yes Asthma? Yes Anemia? No GERD? No Gastric ulcers? No GI Bleed? No Hernia? No Thyroid Problems? No Hypothyroidism? No CVA? No Seizures? No Diabetes? No Insulin Dependent: No Insulin Pump: No Home FSBS? No Renal Insuffiency? No UTI? No Stones? No BPH? No GB Disease: No Nephritic Syndrome? No Asplenia? No Hepatitis? No Sickle Cell Disease? No Arthritis? No Migraines? No Cataracts? No Glaucoma? No MRSA? Yes HIV? No TB? No Anxiety? No Depression? No Cancer? No More? No Immunization HX DT/Tetanus Unknown Flu NEVER Pneumonia NEVER Surgical Hx Previous Surgery?Y LT NECK LYMPH NODE REMOVE TONSILLECTOMY COLLAPSED LUNG X3-CHEST TUBES SURGERY TO REPR DIAPHRAGM WISDOM TEETH EXTRACTED ORAL SURGERY Family History Family HX Diabetes Yes CAD Yes Hypertension Yes Hyperlipidemia Yes Cancer Yes TB No Social History Smoking Hx Smoker: Never Smoker Tobacco: No Packs/day < 1 Pack Alcohol Alcohol: No Review of Systems All Other Systems Reviewed and Negative Constitutional see HPI, denies malaise, denies weakness Musculoskeletal see HPI, denies back pain, muscle stiffness (right wrist) Skin denies change in color, denies lesions, denies lumps, denies rash Psychiatric/Neurological see HPI Physical Exam Vital Signs Vital Signs Date Time Temp Pulse Resp B/P Pulse O2 O2 Flow FiO2 Ox Delivery Rate 09/27 1821 97.9 96 18 125/74 100 09/27 1716 18 09/27 1638 97.9 96 20 125/74 100 General Appearance no apparent distress, obese Respiratory Status No: respiratory distress. Lung Sounds anterior: lungs clear. posterior: lungs clear. bilateral: lungs clear. Cardiovascular no peripheral edema, no murmur Peripheral Pulses Pulses normal Yes (radial) Back normal inspection, gait normal, vertebral tenderness, no tenderness Extremities swelling (mild generalized all rt hand), normal ROM right shoulder, right elbow, right wrist, right digits; pain worse with right wrist ROM, TTP throughout entire right UE from shoulder to fingertips no matter the degrees of palpation; palpation during distraction and no complaints of pain Strength 5 Upper Ext (L), 5 Upper Ext (R) Neurologic alert, no motor/sensory deficits, oriented x 3 Skin intact, normal color, warm/dry Medical Decision Making LABS/Meds/Orders Pt receiving controlled substance in ED? No Results/Orders Current Medication Orders Sig/Nadira Start time Last Medication Dose Route Stop Time Status Admin Ketorolac 60 MG ONCE ONE 09/27 1715 DC 09/27 Tromethamine IM 09/27 Orphenadrine Citrate 60 MG ONCE ONE 09/27 1715 DC 09/27 IM 09/27 1716 171 Orphenadrine Citrate 0 .STK-MED ONE 09/27 1712 DC .ROUTE Ketorolac 0 .STK-MED ONE 09/27 1711 DC Tromethamine .ROUTE Orders Procedure Date/time Status STABILIZE JOINT 09/27 174 Active XRAY/CT/US XRAY/CT/US XRAY shoulder (right), wrist (right) XR interpretation by reviewed by me (w/ CLEMENTE Huerta MD) Xray Results no acute findings Progress [facility] Progress Notes Date 09/27/17 Time 1739 Comment "still a little stiff but the pain has eased up a lot". Departure Departure Time of Disposition 174 Disposition DC Home or Self Care(routine) Clinical Impression Primary Impression: Right wrist sprain Qualifiers: Encounter type: initial encounter Qualified Code: S63.501A - Unspecified sprain of right wrist, initial encounter Condition STABLE Referrals NO REFERRAL Follow up with primary care IMMEDIATELY for new or worsening symptoms OR no noticeable improvement over the next 3-5 days. If you do not have primary care or can not get in there, you can try to follow up with Dr. Griffin's office. If unable to get in there and have no primary care, you will have to return to [facility]. Patient Instructions DI for Wrist Sprain, How To Perform RICE (Rest, Ice, Compress, Elevate) Additional Instructions * use as tolerated. If painful, don't do it. More activity you can do without pain leads to less stiffness and swelling * Rest * ice 15-20 mins 3-4 times a day but if no improvement, change to heat. * Velcro wrist splint for support and swelling unless in shower. Be sure not too tight but not too loose either * Elevate as discussed as much as possible to help reduce swelling and therefore , pain * Ibuprofen every 6 hours as needed for pain and inflammation. If you need something more, you can take tylenol every 4 hours as needed as long as your primary care provider has told you it is ok to take both. Discharge Counseling Counseled pt/family regarding diagnosis, test results, medications/RX, home care, follow up needs at [phone]
--- NOTE | 2017-09-27 16:46 | Urgent Treatment Center Report ---
History of Present Issue Date/Time Seen by Provider 09/27/17 5555 Visit Reason Pt arrived:Walked Presenting Problem:PT C/O RT HAND AND SHOULDER PAIN X3 DAYS Location if Accident: Onset of symptoms date/time:/ or onset unknown for:MEDICAL HX UNKNOWN Have you (or family members/close friends) recently traveled outside the [place]? N If Yes, where/when: Have you had exposure to infectious disease within the past month? TB? Other? Specify: c/o pain right upper extremity. Started 3-4 days ago in right wrist. No known injury. Pain worse with wrist ROM. Isn't sure if work related to not but shifts frequently with right hand and thinks may be related. Since onset, hasn't been using right upper extremity as much and now right hand "seems more swollen" then left. tingly sensations at time. Pain radiating up into right shoulder. 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 No improvement with ibuprofen but hasn't taken it since day before yesterday. Adament he gets wrist and shoulder xrays although we discussed this and seems unnecessary. Denies neck pain, no fevers. Source patient Exam Limitations no limitations ALLERGIES Coded Allergies: Penicillins (10/07/16) Home Medications Active Scripts SULFAMETHOXAZOLE W/TRIMETHOPRI (Bactrim Ds Tab) 1 TABLET PO BID #20 TAB Prov: 09/07/17 MUPIROCIN 2% (Bactroban Oint) 1 ALEX TP BID #1 TUBE Prov: 09/07/17 History Medical History General CAD? No Angina: Yes IA: No Hypertension? No Hyperlipidemia? No CHF? No DVT? No PE? No COPD? Yes Asthma? Yes Anemia? No GERD? No Gastric ulcers? No GI Bleed? No Hernia? No Thyroid Problems? No Hypothyroidism? No CVA? No Seizures? No Diabetes? No Insulin Dependent: No Insulin Pump: No Home FSBS? No Renal Insuffiency? No UTI? No Stones? No BPH? No GB Disease: No Nephritic Syndrome? No Asplenia? No Hepatitis? No Sickle Cell Disease? No Arthritis? No Migraines? No Cataracts? No Glaucoma? No MRSA? Yes HIV? No TB? No Anxiety? No Depression? No Cancer? No More? No Immunization HX DT/Tetanus Unknown Flu NEVER Pneumonia NEVER Surgical Hx Previous Surgery?Y LT NECK LYMPH NODE REMOVE TONSILLECTOMY COLLAPSED LUNG X3-CHEST TUBES SURGERY TO REPR DIAPHRAGM WISDOM TEETH EXTRACTED ORAL SURGERY Family History Family HX Diabetes Yes CAD Yes Hypertension Yes Hyperlipidemia Yes Cancer Yes TB No Social History Smoking Hx Smoker: Never Smoker Tobacco: No Packs/day < 1 Pack Alcohol Alcohol: No Review of Systems All Other Systems Reviewed and Negative Constitutional see HPI, denies malaise, denies weakness Musculoskeletal see HPI, denies back pain, muscle stiffness (right wrist) Skin denies change in color, denies lesions, denies lumps, denies rash Psychiatric/Neurological see HPI Physical Exam Vital Signs Vital Signs Date Time Temp Pulse Resp B/P Pulse O2 O2 Flow FiO2 Ox Delivery Rate 09/27 1821 97.9 96 18 125/74 100 09/27 1716 18 09/27 1638 97.9 96 20 125/74 100 General Appearance no apparent distress, obese Respiratory Status No: respiratory distress. Lung Sounds anterior: lungs clear. posterior: lungs clear. bilateral: lungs clear. Cardiovascular no peripheral edema, no murmur Peripheral Pulses Pulses normal Yes (radial) Back normal inspection, gait normal, vertebral tenderness, no tenderness Extremities swelling (mild generalized all rt hand), normal ROM right shoulder, right elbow, right wrist, right digits; pain worse with right wrist ROM, TTP throughout entire right UE from shoulder to fingertips no matter the degrees of palpation; palpation during distraction and no complaints of pain Strength 5 Upper Ext (L), 5 Upper Ext (R) Neurologic alert, no motor/sensory deficits, oriented x 3 Skin intact, normal color, warm/dry Medical Decision Making LABS/Meds/Orders Pt receiving controlled substance in ED? No Results/Orders Current Medication Orders Sig/Nadira Start time Last Medication Dose Route Stop Time Status Admin Ketorolac 60 MG ONCE ONE 09/27 1715 DC 09/27 Tromethamine IM 09/27 Orphenadrine Citrate 60 MG ONCE ONE 09/27 1715 DC 09/27 IM 09/27 1716 171 Orphenadrine Citrate 0 .STK-MED ONE 09/27 1712 DC .ROUTE Ketorolac 0 .STK-MED ONE 09/27 1711 DC Tromethamine .ROUTE Orders Procedure Date/time Status STABILIZE JOINT 09/27 174 Active XRAY/CT/US XRAY/CT/US XRAY shoulder (right), wrist (right) XR interpretation by reviewed by me (w/ CLEMENTE Huerta MD) Xray Results no acute findings Progress [facility] Progress Notes Date 09/27/17 Time 1739 Comment "still a little stiff but the pain has eased up a lot". Departure Departure Time of Disposition 174 Disposition DC Home or Self Care(routine) Clinical Impression Primary Impression: Right wrist sprain Qualifiers: Encounter type: initial encounter Qualified Code: S63.501A - Unspecified sprain of right wrist, initial encounter Condition STABLE Referrals NO REFERRAL Follow up with primary care IMMEDIATELY for new or worsening symptoms OR no noticeable improvement over the next 3-5 days. If you do not have primary care or can not get in there, you can try to follow up with Dr. Griffin's office. If unable to get in there and have no primary care, you will have to return to [facility]. Patient Instructions DI for Wrist Sprain, How To Perform RICE (Rest, Ice, Compress, Elevate) Additional Instructions * use as tolerated. If painful, don't do it. More activity you can do without pain leads to less stiffness and swelling * Rest * ice 15-20 mins 3-4 times a day but if no improvement, change to heat. * Velcro wrist splint for support and swelling unless in shower. Be sure not too tight but not too loose either * Elevate as discussed as much as possible to help reduce swelling and therefore , pain * Ibuprofen every 6 hours as needed for pain and inflammation. If you need something more, you can take tylenol every 4 hours as needed as long as your primary care provider has told you it is ok to take both. Discharge Counseling Counseled pt/family regarding diagnosis, test results, medications/RX, home care, follow up needs at [phone]
--- NOTE | 2017-09-27 18:04 | RADIOLOGY REPORT PS360 ---
HAND-RT 3 VIEWS HISTORY: PAIN X3 DAYS, NO KNOWN INJURY ORDERING PHYSICIAN: MARY SOUSA APRN PATIENT AGE: 32 years COMPARISON: None FINDINGS: No fracture or dislocation. No lytic or blastic change. There is normal mineralization. The joint spaces are well-preserved. No significant degenerative/arthritic changes. No erosive changes evident. IMPRESSION: Negative, no acute finding
--- NOTE | 2017-09-27 18:10 | RADIOLOGY REPORT PS360 ---
[id number] VIEWS HISTORY: PAIN X3 DAYS, NO KNOWN INJURY ORDERING PHYSICIAN: MARY SOUSA APRN PATIENT AGE: 32 years COMPARISON: None FINDINGS: No fracture or dislocation. No lytic or blastic change. There is normal mineralization. The joint spaces are well-preserved. No significant degenerative/arthritic changes. No erosive changes evident. There is a small lucency in the proximal shaft of the humerus seen only on the external rotation view and is of questionable clinical significance. There is some decrease in the acromiohumeral space which may result in impingement symptomatology. 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
[2017-09-27 18:21] VITALS: BP 125/74
== END 2017-09-27 18:21 | disposition home or self-care (01) ==
LOC: UTC 16:26
PROC: 2W3CX1Z Immobilization of Right Lower Arm using Splint (ICD-10-PCS; principal; 2017-09-27)
DX: S63.501A Unspecified sprain of right wrist, initial encounter (principal); Z88.0 Allergy status to penicillin; J44.9 Chronic obstructive pulmonary disease, unspecified
CPT/HCPCS: 29125; G0463

== ENCOUNTER → 2017-10-07 | Outpatient (CLI) | payer MEDICARE, MEDICAID ==
[~2017-10-07] MED LIST changes: +CLARITIN 10MG T10 MG PO; +FLONASE 50 MCG16 GM; +PROMETHAZINE D118 ML PO
--- NOTE | 2017-10-07 15:49 | RADIOLOGY REPORT PS360 ---
WRIST-3 VIEWS-RT HISTORY: Pain following injury RT WRIST PAIN ORDERING PHYSICIAN: Jeovany Marmolejo MD PATIENT AGE: 32 years COMPARISON: None FINDINGS: No fracture or dislocation. No lytic or blastic change. There is normal mineralization.. The joint spaces are well-preserved. No significant degenerative/arthritic changes. No erosive changes evident.. IMPRESSION: Negative wrist
== END ==
LOC: RAD 15:12
DX: M25.531 Pain in right wrist (principal)

== ENCOUNTER 2017-10-15 11:06 | Emergency (ER) | payer MEDICARE, MEDICAID ==
[~2017-10-15] VITALS: Ht 175.3 cm; Wt 135.2 kg
[~2017-10-15 11:06] MED LIST changes: -CLARITIN 10MG T10 MG PO; -FLONASE 50 MCG16 GM; -PROMETHAZINE D118 ML PO
--- OUTSIDE RECORDS SUMMARY | 2017-10-15 11:11 | External Medical Summary Rpt | CCD ---
Demographics Preferred Language Upper Sorbian Marital Status Unknown Holiness Affiliation Unknown Race Unknown Ethnic Group Unknown Author Author CYNTHIA Address Unknown Phone [email or web address] Purpose Continuity of Care Document - through 2016
--- OUTSIDE RECORDS SUMMARY | 2017-10-15 11:11 | External Medical Summary Rpt | CCD ---
Author Author , CYNTHIA MARIE Address Unknown Phone [email or web address] Support Name Relationship Address Phone MIHAELA, Next [...]
--- OUTSIDE RECORDS SUMMARY | 2017-10-15 11:11 | External Medical Summary Rpt | CCD ---
Author Author , CYNTHIA MARIE Address Unknown Phone [email or web address] Care Team Providers Care Tubing Tester Name Role Phone Erwin Tristan Unavailable Unavailable , Erwin Tirstan MD Purpose Continuity of Care Document - 05-28-2013 through 2016 Problems Code Diagnosis DOS Provider Status 305.1 305.1 10-22-2013 [place] TOBACCO USE [facility] 413.9 413.9 10-22-2013 [place] ANGINA [facility] PECTORIS [facility] NEC/NOS 493.90 493.90 10-22-2013 [place] ASTHMA, [facility] UNSPECIFIED Hospital 496 496 CHR 10-22-2013 [place] AIRWAY [facility] OBSTRUCT [facility] NEC 842.00 842.00 10-22-2013 [place] SPRAIN OF [facility] Hospital J02.9 ACUTE PHARYNGITIS , UNSPECIFIED J18.9 [...] Wound culture (09-07-2017 14:50) Comment: COMMENTS TO FACULTY HEAD: wound aspirate Wound [id number] complet culture 017 ed 14:50 Staphyl ococcus aureus SCT SAUR STAPHYL OCOCCUS AUREUS L Streptococcus pyogenes Ag [Presence] in Unspecified specimen (05-01-2017 00:50) Strepto NEGATIV complet coccus 017 E ed pyogene 00:50 s Ag [Presen ce] in Unspeci fied specime n Encounters Encounter Start End Date Code Location Performer Type Date Emergency MELITON Tristan MD (ER) 3 21:53 3 22:32 [facility] er R. Emergency MELITON Durham MD (ER) 3 16:24 3 16:59 [facility]
--- OUTSIDE RECORDS SUMMARY | 2017-10-15 11:11 | External Medical Summary Rpt | CCD ---
Demographics Preferred Language Ukrainian Marital Status Unknown Yazdanism Affiliation Unknown Race Unknown Ethnic Group Unknown Author Author CYNTHIA Address Unknown Phone [email or web address] Purpose Continuity of Care Document - through 2016
--- OUTSIDE RECORDS SUMMARY | 2017-10-15 11:11 | External Medical Summary Rpt | CCD ---
Author Author , CYNTHIA MARIE Address Unknown Phone [email or web address] Care Team Providers Care Pineapple Plantation Manager Name Role Phone Erwin Tristan Unavailable Unavailable , Erwin Tristan MD Purpose Continuity of Care Document - 05-28-2013 through 2016 Problems Code Diagnosis DOS Provider Status 305.1 305.1 10-22-2013 [place] TOBACCO USE [facility] 413.9 413.9 10-22-2013 [place] ANGINA [facility] PECTORIS [facility] NEC/NOS 493.90 493.90 10-22-2013 [place] ASTHMA, [facility] UNSPECIFIED Hospital 496 496 CHR 10-22-2013 [place] AIRWAY [facility] OBSTRUCT [facility] NEC 842.00 842.00 10-22-2013 [place] SPRAIN OF [facility] Hospital J02.9 ACUTE [...] Wound culture (09-07-2017 14:50) Comment: COMMENTS TO FRONT DESK LEAD: wound aspirate Wound [id number] complet culture 017 ed 14:50 Staphyl ococcus aureus SCT SAUR STAPHYL OCOCCUS AUREUS L Streptococcus pyogenes Ag [Presence] in Unspecified specimen (05-01-2017 00:50) Strepto NEGATIV complet coccus 017 E ed pyogene 00:50 s Ag [Presen ce] in Unspeci fied specime n Encounters Encounter Start End Date Code Location Performer Type Date Emergency MELITON Tristan MD (ER) 3 21:53 3 22:32 [facility] er R. Emergency MELITON Durham MD (ER) 3 16:24 3 16:59 [facility]
--- OUTSIDE RECORDS SUMMARY | 2017-10-15 11:11 | External Medical Summary Rpt | CCD ---
Author Author , CYNTHIA MARIE Address Unknown Phone [email or web address] Support Name Relationship Address Phone MIHAELA, Next [...]
[2017-10-15] MEDS ORDERED: ALBUTEROL-200 PUFFS/ IH (11:50)
--- NOTE | 2017-10-15 12:18 | Urgent Treatment Center Report ---
History of Present Issue Date/Time Seen by Provider 10/15/17 1218 Visit Reason Pt arrived:Walked Presenting Problem:PT STATES HE WOKE UP WITH A SORE THROAT THIS MORNING Location if Accident: Onset of symptoms date/time:/ or onset unknown for:MEDICAL HX UNKNOWN Have you (or family members/close friends) recently traveled outside the [place]? N If Yes, where/when: Have you had exposure to infectious disease within the past month? TB? Other? Specify: Patient state that he has had a bad cough State that he woke up this morning and his throat was sore State that he was not sure if he had jamey around someone with strep throat or his throat was sore from coughing all night State that he came in to get checked for strep to make sure he didn't take it home to his family ALLERGIES Coded Allergies: Penicillins (10/07/16) Home Medications Reported Medications Albuterol (Albuterol-Hfa Inhaler) 1 PUFF IH PRN History Medical History General CAD? No Angina: Yes [place]: No Hypertension? No Hyperlipidemia? No CHF? No DVT? No PE? No COPD? Yes Asthma? Yes Anemia? No GERD? No Gastric ulcers? No GI Bleed? No Hernia? No Thyroid Problems? No Hypothyroidism? No CVA? No Seizures? No Diabetes? No Insulin Dependent: No Insulin Pump: No Home FSBS? No Renal Insuffiency? No UTI? No Stones? No BPH? No GB Disease: No Nephritic Syndrome? No Asplenia? No Hepatitis? No Sickle Cell Disease? No Arthritis? No Migraines? No Cataracts? No Glaucoma? No MRSA? Yes HIV? No TB? No Anxiety? No Depression? No Cancer? No More? No Immunization HX DT/Tetanus Unknown Flu NEVER Pneumonia NEVER Surgical Hx Previous Surgery?Y LT NECK LYMPH NODE REMOVE TONSILLECTOMY COLLAPSED LUNG X3-CHEST TUBES SURGERY TO REPR DIAPHRAGM WISDOM TEETH EXTRACTED ORAL SURGERY Family History Family HX Diabetes Yes CAD Yes Hypertension Yes Hyperlipidemia Yes Cancer Yes TB No Social History Smoking Hx Smoker: Never Smoker Tobacco: No Packs/day < 1 Pack Alcohol Alcohol: No Review of Systems All Other Systems Reviewed and Negative ENT throat pain. Respiratory cough Physical Exam Vital Signs Vital Signs Date Time Temp Pulse Resp B/P Pulse O2 O2 Flow FiO2 Ox Delivery Rate 10/15 1148 97.9 114 20 163/76 97 General Appearance normal appearance, WD/WN, no apparent distress Ear, Nose, Throat Throat red, irritated no drainage, clear drainage from nose Respiratory Status Yes: trachea midline, chest symmetrical, non tender chest. No: respiratory distress. Lung Sounds bilateral: normal breath sounds, lungs clear. Cardiovascular normal exam, regular rate/rhythm, no peripheral edema Neurologic alert, normal exam, oriented x 3 Medical Decision Making LABS/Meds/Orders Pt receiving controlled substance in ED? No Results/Orders Laboratory Tests 10/15/17 1148: Group A Strep Screen NOT DETECTED Orders Procedure Date/time Status [facility] STREP SCREEN 10/15 1148 Complete Departure Departure Time of Disposition 1231 Disposition DC Home or Self Care(routine) Clinical Impression Primary Impression: Cough Condition STABLE Referrals Jaleel ABARCA,Jeovany (Family): 3 Days-Call Office or sooner if no improvement Patient Instructions Cough, Sore Throat Additional Instructions * Monitor Temp. Tylenol and/or Ibuprofen as needed. ER if fever is no less than 101 despite alternating Tylenol and Ibuprofen * Encourage fluids, water, Gatorade, powerade, pedialyte if infant/toddler/or child * Warm salt water gargles for throat irritation *Warm fluids *Sore throat lozenges *Sleep elevated *humidifier or vaporizer Lots of rest Increase fluids, water, Gatorade, powerade *Flonase 2 sprays each nostril daily but may take 2-3 days to notice improvement with it *Bromfed may cause drowsiness. Know how it effect you or your child. Before driving, caring for small children or sending your child to school *Your throat swab was sent to lab for culture. Those results area typically sent to your primary care physician. Be sure to follow up in 2-3 days if no improvement so they can review those results and treat if necessary If you dont have primary care I recommend you get one, but in the mean time you will have to return to a walk in clinic Follow up IMMEDIATELY for new or worsening of symptoms OR no noticeable improvement over the next 48-72 hours. 911 immediately for any life threatening symptoms such as chest pain or difficulty breathing Discharge Counseling Counseled pt/family regarding diagnosis, test results Prescriptions Current Visit Scripts PROMETHAZINE/DEXTROMETHORPHAN (Promethazine-Dm Syrup) 5 ML PO Q6HP PRN cough #150 SYR Fluticasone Propionate (Flonase 50 Mcg Nasal [place]) 2 SPRAY NA DAILY #1 BOT Loratadine (Claritin 10MG) 10 MG PO DAILY #30 TAB at 1238
[2017-10-15] MEDS ORDERED: CLARITIN 10MG T10 MG PO (12:33)
[2017-10-15] MEDS ORDERED: FLONASE 50 MCG16 GM (12:33)
[2017-10-15] MEDS ORDERED: PROMETHAZINE D118 ML PO (12:33)
[2017-10-15 12:36] VITALS: BP 152/77
== END 2017-10-15 12:37 | disposition home or self-care (01) ==
LOC: UTC 11:06
DX: R05 Cough (principal); J44.9 Chronic obstructive pulmonary disease, unspecified; Z88.0 Allergy status to penicillin; Z79.899 Other long term (current) drug therapy